=== PATIENT | male | born 1955 | race African-American/Black ===

== ENCOUNTER 2017-09-28 10:10 | Emergency (ER) | payer BC, MEDICARE, OTHER ==
[~2017-09-28] VITALS: Ht 170.2 cm; Wt 70.8 kg
[~2017-09-28 10:10] MED LIST: AURALGAN OTIC1 DROP RIGHT EAR; AZITHROMYCIN250 MG ORAL; BENADRYL50 MG ORAL; BIAXIN500 M1 PO; CEPHALEXIN500 MG ORAL; CIALIS5 MG PO; FLONASE1 SPRAYS NASAL; GENVOYA TABLET1 EACH PO; NORCO 5-325 TA1 EAC1 ORAL; PREDNISONE50 MG ORAL; RANITIDINE HCL150 MG ORAL; SERTRALINE HCL50 MG ORAL; TORADOL30 MG IM; ZYRTEC-D TABLE1 EACH ORAL
[2017-09-28] MEDS ORDERED: EPIPEN 2-P0.3 MG/0.3 IM (10:26)
[2017-09-28] MEDS ORDERED: BENADRYL25 MG ORAL (10:26)
[2017-09-28] MEDS ORDERED: PREDNISONE20 MG ORAL (10:26)
--- NOTE | 2017-09-28 10:41 | Emergency Room Report ---
History of Present Illness General Chief Complaint: Allergic Reaction Source: Patient Present Illness HPI Patient is a 62-year-old male who presented after increased generalized rash. Patient had onset of symptoms for the past few hours. He denied any difficulty breathing. Dizzy or lightheaded. Patient stated that he had been having increased itching to the area. He denies any medications or recent illness Allergies: Coded Allergies: NO KNOWN ALLERGIES (Unverified Allergy, Unknown, 10/08/15) Patient History Past Medical History: see triage record Reviewed Nursing Documentation: PMH: Agreed, PSxH: Agreed Nursing Documentation-PMH Past Medical History: No History, Except For Review of Systems All Other Systems: negative except mentioned in HPI Physical Exam Vital Signs Date Time Temp Pulse Resp B/P (MAP) Pulse Ox O2 Delivery O2 Flow Rate FiO2 09/28/17 10:14 97.9 80 16 114/66 99 Room Air Sp02 EP Interpretation: reviewed, normal General Appearance: normal inspection, well appearing, no apparent distress, alert, GCS 15, non-toxic Head: atraumatic ENT: normal ENT inspection, hearing grossly normal, normal voice Neck: normal inspection, full range of motion, supple, no bony tend Respiratory: normal inspection, lungs clear, normal breath sounds, no respiratory distress, no retraction, no wheezing Cardiovascular #1: regular rate, rhythm, no edema Gastrointestinal: normal inspection, normal bowel sounds, non tender, soft, no guarding, no hernia Genitourinary: no CVA tenderness Musculoskeletal: normal inspection, back normal, normal range of motion Neurologic: normal inspection, alert, responsive, speech normal Psychiatric: normal inspection, judgement/insight normal, mood/affect normal Skin: other - urticaria rash, generalized Medical Decision Making Diagnostic Impression: Primary Impression: Allergic reaction ER Course Patient presented for skin rash. Differential diagnosis included was not limited to Solares-Hipolito syndrome, urticaria, erythema multiforme, contact dermatitis. The patient was given Benadryl and steroids with improvement to Patient's benign exam and does not appear to require any further imaging or laboratory testing at this time. The patient is advised to follow up with primary care doctor in 1-2 days. Patient is advised to return if any worsening condition or if any changes in status that are concerning. Last Vital Signs Date Time Temp Pulse Resp B/P (MAP) Pulse Ox O2 Delivery O2 Flow Rate FiO2 09/28/17 10:14 97.9 80 16 114/66 99 Room Air Status: improved Disposition: HOME, SELF-CARE Condition: Stable Scripts Epinephrine (Epipen 2-Luis) 0.3 Mg/0.3 Ml Auto.injct 0.3 MG IM NEEDED for severe allergic reaction, #1 EA Prov: Sunil Atwood 09/28/17 Prednisone* (PREDNISONE*) 20 Mg Tablet 40 MG ORAL DAILY, #10 TAB Prov: Sunil Atwood 09/28/17 Diphenhydramine Hcl* (BENADRYL*) 25 Mg Capsule 25 MG ORAL Q6H Y for Itching, #30 CAP Prov: Sunil Atwood 09/28/17 Patient Instructions: Allergies Sunil Atwood Sep 28, 2017 10:41
[2017-09-28 11:04] VITALS: BP 124/75
== END 2017-09-28 11:05 | disposition home or self-care (01) ==
LOC: EMR 10:46
DX: T78.40XA Allergy, unspecified, initial encounter (principal); X58.XXXA Exposure to other specified factors, initial encounter; R21 Rash and other nonspecific skin eruption
CPT/HCPCS: 99284

== ENCOUNTER 2019-01-03 03:50 | Emergency (ER) | payer MEDICARE ==
[~2019-01-03] VITALS: Ht 170.2 cm; Wt 71.7 kg
[~2019-01-03 03:50] MED LIST changes: +BENADRYL25 MG ORAL; +DICYCLOMINE HCL10 MG PO; +EPIPEN 2-P0.3 MG/0.3 IM; +PREDNISONE20 MG ORAL; +PRILOSEC OTC20 MG ORAL; +ZOFRAN4 MG ORAL
[2019-01-03 04:21] VITALS: BP 149/90
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
[2019-01-03] MEDS ORDERED: Azithromycin 250mg tab ORAL ONE (04:45)
[2019-01-03] MEDS ORDERED: Ketorolac 30mg Inj IV ONE (04:45)
[2019-01-03] MEDS ORDERED: Isovue-300 100ml vial INJ PRN (04:45)
[2019-01-03] MEDS ORDERED: cefTRIAXone 1 GM in NS 55 ML IVPB ONE (04:45)
[2019-01-03 04:55] LABS: BASOPHILS % (AUTO) 1.9 % (0.0-2.0); EOSINOPHILS % (AUTO) 2.5 % (0.0-3.0); HEMATOCRIT 32.4 % (42.0-52.0); HEMOGLOBIN 10.9 G/DL (14.2-18.0); LYMPHOCYTES % (AUTO) 29.7 % (20.0-45.0); MEAN CORPUSCULAR VOLUME 97 FL (80-99); MONOCYTES % (AUTO) 11.1 % (1.0-10.0); NEUTROPHILS % (AUTO) 54.8 % (45.0-75.0); PLATELET COUNT 128 K/UL (150-450); RED BLOOD COUNT 3.35 M/UL (4.70-6.10); RED CELL DISTRIBUTION WIDTH 12.2 % (11.6-14.8); WHITE BLOOD COUNT 8.1 K/UL (4.8-10.8)
[2019-01-03 05:16] LABS: ALANINE AMINOTRANSFERASE 31 U/L (12-78); ALKALINE PHOSPHATASE 75 U/L (46-116); ANION GAP 7 mmol/L (5-15); ASPARTATE AMINO TRANSFERASE 22 U/L (15-37); BILIRUBIN,TOTAL 0.3 MG/DL (0.2-1.0); CARBON DIOXIDE 26 MMOL/L (21-32); CHLORIDE 103 MMOL/L (98-107); CREATINE KINASE 198 U/L (26-308); POTASSIUM 4.3 MMOL/L (3.5-5.1); SODIUM 136 MMOL/L (136-145)
[2019-01-03 05:26] LABS: ALBUMIN 3.5 G/DL (3.4-5.0); BLOOD UREA NITROGEN 12 mg/dL (7-18); CREATININE 0.9 MG/DL (0.55-1.30)
[2019-01-03 05:28] LABS: CALCIUM 9.1 MG/DL (8.5-10.1)
--- NOTE | 2019-01-03 05:57 | Diagnostic Imaging Report ---
EXAM: XR Chest, 1 View CLINICAL HISTORY: PAIN TECHNIQUE: Frontal view of the chest. COMPARISON: No relevant prior studies available. FINDINGS: Lungs: Low lung volumes accentuate pulmonary lung markings. Mild right basilar atelectasis. Mild streaky density in the left lung base. Pleural space: Unremarkable. No pneumothorax. Heart: Unremarkable. No cardiomegaly. Mediastinum: Unremarkable. Bones/joints: Unremarkable. Vasculature: Slight unfolding of the thoracic aorta. Upper abdomen: Mild elevation of the right hemidiaphragm. Surgical clips in the right upper quadrant. IMPRESSION: Low lung volumes. Mild bibasilar atelectasis suspected. Elevation of the right hemidiaphragm
[2019-01-03 06:03] LABS: APPEARANCE,URINE CLEAR; BILIRUBIN, URINE NEGATIVE (NEGATIVE); COLOR,URINE PALE YELLOW; GLUCOSE, URINE (UA) NEGATIVE (NEGATIVE); KETONES,URINE NEGATIVE (NEGATIVE); LEUKOCYTE ESTERASE ,URINE 1+ (NEGATIVE); NITRITE,URINE NEGATIVE (NEGATIVE); PH,URINE 5 (4.5-8.0); PROTEIN,URINE 2+ (NEGATIVE); UROBILINOGEN,URINE NORMAL MG/DL (0.0-1.0)
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
[2019-01-03] MEDS ORDERED: Azithromycin 600mg Tab ONE (06:10)
[2019-01-03 06:30] VITALS: BP 124/86
--- NOTE | 2019-01-03 07:19 | NUR ---
ER Nurse Note: Pt came back from CT; awaiting results. Pt a&ox4, VSS, no signs of distress. All orders completed per ERMD orders. Report given to ANTHONY Case for continuity of care.
--- NOTE | 2019-01-03 07:19 | NUR ---
ED Nurse Note: Report received from RN, patient is in bed resting comfortably with his eyes open. V/S stable with no s/s of acute distress noted. Pt awaiting CT results.
[2019-01-03] MEDS ORDERED: ROBAXIN500 MG PO (07:24)
[2019-01-03] MEDS ORDERED: IBUPROFEN600 MG ORAL (07:24)
--- NOTE | 2019-01-03 07:40 | Diagnostic Imaging Report ---
EXAM: CT Neck With Intravenous Contrast CLINICAL HISTORY: PAIN TECHNIQUE: Axial computed tomography images of the neck with intravenous contrast. CTDI is 19.5 mGy and DLP is 628 mGy-cm. One or more of the following dose reduction techniques were used: automated exposure control, adjustment of the mA and/or kV according to patient size, use of iterative reconstruction technique. Coronal and sagittal reformatted images were created and reviewed. COMPARISON: CXR 01/03/19. FINDINGS: Oropharynx: Mild mucosal thickening which may reflect a degree of pharyngitis. No significant tonsillar enlargement. No peritonsillar abscess. Hypopharynx: Unremarkable. Larynx: Unremarkable. Normal epiglottis. Trachea: Unremarkable. Retropharyngeal space: Unremarkable. Submandibular/parotid glands: Unremarkable. Glands are normal in size. Thyroid: Unremarkable. No enlarged or calcified nodules. Bones/joints: Cervical spondylosis with disc osteophytes complexes from C3-C7 with varying degrees of central and neural foraminal stenosis. No acute fracture. Soft tissues: Unremarkable. Vasculature: No acute findings. Lymph nodes: Submental lymph nodes measuring up to 14.8 mm. Nonspecific. Lung apices: Right lower lobe cluster of nodules measuring up to 4.9- mm. Few lung blebs seen within the visualized lung apices. IMPRESSION: 1. Mild mucosal thickening of the oropharynx which may reflect a degree of pharyngitis 2 Cervical spondylosis with disc osteophytes complexes from C3-C7 with varying degrees of central and neural foraminal stenosis. 3. Right lower lobe cluster of nodules measuring up to 4.9-mm. For low- risk patients, no follow-up is necessary. For high-risk patients (smoking history or other known risk factors) an optional chest CT at 12 months could be performed.
[2019-01-03 08:21] VITALS: BP 124/81
--- NOTE | 2019-01-03 08:22 | NUR ---
ED Nurse Note Pt seen, treated, medically cleared for discharge for ERMD. Discharge instructions and prescriptions given with repeat verbalization by pt. Instructed pt to follow up with primary care physican within one week. Pt a&ox4, VSS, no signs of distress, denies pain. ID band removed; IV removed, site clean and bandaged. All belongings taken wtih pt, ambulated with steady gait via own transportation.
== END 2019-01-03 08:22 | disposition home or self-care (01) ==
LOC: EMR 04:16
DX: M54.2 Cervicalgia (principal); M47.812 Spondylosis without myelopathy or radiculopathy, cervical region; R82.998 Other abnormal findings in urine
CPT/HCPCS: 36415; 70491; 71045; 72126; 80053; 81003; 82550; 84484; 85025; 86140; 87491; 87590; 93005; 96361; 96365; 96375; 99284; J0696; J1885; Q9967

== ENCOUNTER 2019-08-30 19:57 | Inpatient (IN) | payer MEDICARE ==
[~2019-08-30] VITALS: Ht 170.2 cm; Wt 66.7 kg
[~2019-08-30 19:57] MED LIST changes: +IBUPROFEN600 MG ORAL; +ROBAXIN500 MG PO
--- NOTE | 2019-08-30 20:14 | NUR ---
ED Nurse Note: Patient ursed in corrid[place]. Complaining of headaxche and back ache since 6am this morning.
[2019-08-30] MEDS ORDERED: Ketorolac 30mg Inj IV ONE (21:15)
[2019-08-30 21:33] LABS: APPEARANCE,URINE CLEAR; BILIRUBIN, URINE NEGATIVE (NEGATIVE); COLOR,URINE PALE YELLOW; GLUCOSE, URINE (UA) NEGATIVE (NEGATIVE); KETONES,URINE NEGATIVE (NEGATIVE); LEUKOCYTE ESTERASE ,URINE NEGATIVE (NEGATIVE); NITRITE,URINE NEGATIVE (NEGATIVE); PH,URINE 8 (4.5-8.0); PROTEIN,URINE 1+ (NEGATIVE); UROBILINOGEN,URINE NORMAL MG/DL (0.0-1.0)
[2019-08-30 22:03] LABS: HEMATOCRIT 33.3 % (42.0-52.0); HEMOGLOBIN 10.9 G/DL (14.2-18.0); MEAN CORPUSCULAR VOLUME 94 FL (80-99); PLATELET COUNT 479 K/UL (150-450); RED BLOOD COUNT 3.54 M/UL (4.70-6.10); RED CELL DISTRIBUTION WIDTH 13.2 % (11.6-14.8); WHITE BLOOD COUNT 20.4 K/UL (4.8-10.8)
[2019-08-30 22:08] LABS: ANION GAP 5 mmol/L (5-15); BLOOD UREA NITROGEN 8 mg/dL (7-18); CALCIUM 9.2 MG/DL (8.5-10.1); CARBON DIOXIDE 30 MMOL/L (21-32); CHLORIDE 100 MMOL/L (98-107); POTASSIUM 3.8 MMOL/L (3.5-5.1); SODIUM 135 MMOL/L (136-145)
[2019-08-30 22:13] LABS: ALANINE AMINOTRANSFERASE 22 U/L (12-78); ALBUMIN 2.8 G/DL (3.4-5.0); ALBUMIN/GLOBULIN RATIO 0.4 (1.0-2.7); ALKALINE PHOSPHATASE 93 U/L (46-116); ASPARTATE AMINO TRANSFERASE 18 U/L (15-37); BILIRUBIN,TOTAL 0.3 MG/DL (0.2-1.0); CREATINE KINASE 44 U/L (26-308)
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
[2019-08-30] MEDS ORDERED: oxyCODONE HCL/Acetaminophen 5/325mg ORAL ONE (23:45)
--- NOTE | 2019-08-30 23:52 | NUR ---
Face sheet, dictation and clinicals faxed to [phone] and [phone] as requested with authorization # [id number]
[2019-08-31] VITALS: BP 118/72
--- NOTE | 2019-08-31 00:30 | NUR ---
ED Nurse Note: Patient transferred to [facility] [address] bed 2 report given to charge nurse pre transfer.
--- NOTE | 2019-08-31 00:35 | NUR ---
NURSE NOTES: Pt received to the floor, alert and oriented X 4, able to make needs known, call light within reach,VS 99.7, 84HR 132/75, 95% with pain level of 6/10, will contact MD for orders and to verify if pt will be observation. Addendum: 08/31/19 at 0458 by BRAN GAVIRIA RN NURSE NOTES: Pt belongings list completed and signed pt the pt, he refused to put his money in the safe. Pt also with 2 tabs of [place] in his wallet. Medication was taken from pt and will be given to the pharmacy.
[2019-08-31] MEDS ORDERED: HYDROcodone/Acetamin 5/325 tab ORAL PRN (01:15)
[2019-08-31] MEDS: HYDROcodone/Acetamin 10/325 tab ORAL PRN ×3 (01:41→18:15)
[2019-08-31 04:00] VITALS: BP 116/58
--- NOTE | 2019-08-31 07:23 | NUR ---
HAND-OFF: Report given to ANTHONY Finley.
[2019-08-31 07:44] LABS: HEMATOCRIT 27.8 % (42.0-52.0); HEMOGLOBIN 9.3 G/DL (14.2-18.0); MEAN CORPUSCULAR VOLUME 94 FL (80-99); PLATELET COUNT 433 K/UL (150-450); RED BLOOD COUNT 2.95 M/UL (4.70-6.10); RED CELL DISTRIBUTION WIDTH 14.5 % (11.6-14.8)
[2019-08-31 08:00] VITALS: BP 114/57
--- NOTE | 2019-08-31 08:09 | NUR ---
pt resting in bed. complained of back pain, medicated per order. tolerating diet well. no N/V . call light within reach. fall precaution maintained. will continue to monitor. Addendum: 08/31/19 at 1452 by Malia Glaser RN pt family will bring [employer] med from home tomorrow.
[2019-08-31 08:41] LABS: ALANINE AMINOTRANSFERASE 15 U/L (12-78); ALBUMIN 2.4 G/DL (3.4-5.0); ALBUMIN/GLOBULIN RATIO 0.4 (1.0-2.7); ALKALINE PHOSPHATASE 83 U/L (46-116); ANION GAP 6 mmol/L (5-15); ASPARTATE AMINO TRANSFERASE 14 U/L (15-37); BILIRUBIN,TOTAL 0.3 MG/DL (0.2-1.0); BLOOD UREA NITROGEN 7 mg/dL (7-18); CALCIUM 8.8 MG/DL (8.5-10.1); CARBON DIOXIDE 25 MMOL/L (21-32); CHLORIDE 103 MMOL/L (98-107); CREATININE 0.9 MG/DL (0.55-1.30); POTASSIUM 3.9 MMOL/L (3.5-5.1); SODIUM 134 MMOL/L (136-145)
[2019-08-31] MEDS: Docusate 100mg cap ORAL SCH ×2 (08:45→18:16)
[2019-08-31] MEDS: Heparin 5000 units/ml inj SUBQ SCH ×2 (08:46→20:33)
[2019-08-31 12:00] VITALS: BP 120/65
[2019-08-31] MEDS ORDERED: oxyCODONE HCL/Acetaminophen 5/325mg ORAL PRN (13:00)
[2019-08-31] MEDS ORDERED: Ketorolac 30mg Inj IV SCH ×2 (13:00→17:00)
[2019-08-31] MEDS ORDERED: Gadavist 7.5mMol/7.5ml vial IV PRN ×2 (14:15)
--- NOTE | 2019-08-31 14:30 | Infectious Diseases Prog Note ---
Assessment/Plan Assessment/Plan Full consult to follow: A) 1) V[place]LEG[place], fever, ? 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 spinal 2) leukocytosis, ? sepsis 3) hiv hx P) 1) MRI, LP 2) cultures, serology, f/u labs 3) antibiotics as indicated 4) thank you Subjective Allergies: Coded Allergies: NO KNOWN ALLERGIES (Unverified Allergy, Unknown, 10/08/15) Objective Vital Signs Last 24 Hour Vital Signs Date Time Temp Pulse Resp B/P (MAP) Pulse Ox O2 Delivery O2 Flow Rate FiO2 08/31/19 12:00 97.7 120/65 (83) 08/31/19 09:00 Room Air 08/31/19 08:21 99.1 08/31/19 08:00 99.1 87 20 114/57 (76) 97 08/31/19 04:00 97.0 90 20 116/58 (77) 95 08/31/19 01:02 Room Air 08/31/19 00:30 98.7 82 16 118/72 98 Room Air 08/31/19 00:00 98.7 82 16 118/72 98 Room Air 08/30/19 20:20 82 16 Room Air 08/30/19 20:01 98.2 76 16 110/68 (82) 98 Room Air Height (Feet): 5 Height (Inches): 7.00 Weight (Pounds): 147 Laboratory Tests Test 08/30/19 20:20 08/30/19 21:23 08/30/19 22:25 08/31/19 05:30 Urine Color Pale yellow Urine Appearance Clear Urine pH 8 (4.5-8.0) Urine Specific [place] 1.015 (1.005-1.035) Urine Protein 1+ (NEGATIVE) H Urine Glucose (UA) Negative (NEGATIVE) Urine Ketones Negative (NEGATIVE) Urine Blood 1+ (NEGATIVE) H Urine Nitrite Negative (NEGATIVE) Urine Bilirubin Negative (NEGATIVE) Urine Urobilinogen Normal MG/DL (0.0-1.0) Urine Leukocyte Esterase Negative (NEGATIVE) Urine RBC 2-4 /HPF (0 - 0) H Urine WBC 0 /HPF (0 - 0) Urine Squamous Epithelial Cells Occasional /LPF Urine Bacteria Occasional /HPF (NONE) White Blood Count 20.4 K/UL (4.8-10.8) H Pending Red Blood Count 3.54 M/UL (4.70-6.10) L 2.95 M/UL (4.70-6.10) L Hemoglobin 10.9 G/DL (14.2-18.0) L 9.3 G/DL (14.2-18.0) L Hematocrit 33.3 % (42.0-52.0) L 27.8 % (42.0-52.0) L Mean Corpuscular Volume 94 FL (80-99) 94 FL (80-99) Mean Corpuscular Hemoglobin 30.9 PG (27.0-31.0) 31.7 PG (27.0-31.0) H Mean Corpuscular Hemoglobin Concent 32.8 G/DL (32.0-36.0) 33.6 G/DL (32.0-36.0) Red Cell Distribution Width 13.2 % (11.6-14.8) 14.5 % (11.6-14.8) Platelet Count 479 K/UL (150-450) H 433 K/UL (150-450) Mean Platelet Volume 5.5 FL (6.5-10.1) L 4.6 FL (6.5-10.1) L Neutrophils (%) (Auto) % (45.0-75.0) % (45.0-75.0) Lymphocytes (%) (Auto) % (20.0-45.0) % (20.0-45.0) Monocytes (%) (Auto) % (1.0-10.0) % (1.0-10.0) Eosinophils (%) (Auto) % (0.0-3.0) % (0.0-3.0) Basophils (%) (Auto) % (0.0-2.0) % (0.0-2.0) Differential Total Cells Counted 100 100 Neutrophils % (Manual) 69 % (45-75) 70 % (45-75) Lymphocytes % (Manual) 17 % (20-45) L 13 % (20-45) L Monocytes % (Manual) 13 % (1-10) H 15 % (1-10) H Eosinophils % (Manual) 0 % (0-3) 2 % (0-3) Basophils % (Manual) 1 % (0-2) 0 % (0-2) Band Neutrophils 0 % (0-8) 0 % (0-8) Platelet Estimate Increased H Adequate Platelet Morphology Normal Normal Stomatocytes 2+ Sodium Level 135 MMOL/L (136-145) L 134 MMOL/L (136-145) L Potassium Level 3.8 MMOL/L (3.5-5.1) 3.9 MMOL/L (3.5-5.1) Chloride Level 100 MMOL/L (98-107) 103 MMOL/L (98-107) Carbon Dioxide Level 30 MMOL/L (21-32) 25 MMOL/L (21-32) Anion Gap 5 mmol/L (5-15) 6 mmol/L (5-15) Blood Urea Nitrogen 8 mg/dL (7-18) 7 mg/dL (7-18) Creatinine 1.0 MG/DL (0.55-1.30) 0.9 MG/DL (0.55-1.30) Estimat Glomerular Filtration Rate > 60 mL/min (>60) > 60 mL/min (>60) Glucose Level 105 MG/DL (74-106) 152 MG/DL (74-106) H Calcium Level 9.2 MG/DL (8.5-10.1) 8.8 MG/DL (8.5-10.1) Total Bilirubin 0.3 MG/DL (0.2-1.0) 0.3 MG/DL (0.2-1.0) Aspartate Amino Transf (AST/SGOT) 18 U/L (15-37) 14 U/L (15-37) L Alanine Aminotransferase (ALT/SGPT) 22 U/L (12-78) 15 U/L (12-78) Alkaline Phosphatase 93 U/L (46-116) 83 U/L (46-116) Total Creatine Kinase 44 U/L (26-308) Total Protein 10.2 G/DL (6.4-8.2) H 8.9 G/DL (6.4-8.2) H Albumin 2.8 G/DL (3.4-5.0) L 2.4 G/DL (3.4-5.0) L Globulin 7.4 g/dL 6.5 g/dL Albumin/Globulin Ratio 0.4 (1.0-2.7) L 0.4 (1.0-2.7) L Lipase 56 U/L (73-393) L Lactic Acid Level 1.70 mmol/L (0.4-2.0) Lymphocytes Pending Percent CD3 Cells Pending Absolute CD3 Count Pending Percent CD4 Cells Pending Absolute CD4 Count Pending T-Lymphocyte CD4/CD8 Ratio Pending Percent CD8 Cells Pending Absolute CD8 Count Pending HIV-1 RNA (PCR) log10 Value Pending HIV-1 RNA Ultraquantitative (PCR) Pending Current Medications Medications (Trade) Dose Ordered Sig/Jamil Route PRN Reason Start Time Stop Time Status Last Admin Dose Admin Acetaminophen (Tylenol) 650 mg Q4H PRN ORAL Mild Pain/Temp > 100.5 08/31/19 01:15 09/30/19 01:14 Acetaminophen/ Hydrocodone Bitart ([place] 10/325) 1 tab Q4H PRN ORAL Severe Pain (Pain Scale 7-10) 08/31/19 01:15 09/07/19 01:14 08/31/19 07:51 Acetaminophen/ Hydrocodone Bitart ([place] 5/325) 1 tab Q4H PRN ORAL Moderate Pain (Pain Scale 4-6) 08/31/19 01:15 09/07/19 01:14 Docusate Sodium (Colace) 100 mg TWICE A DAY ORAL 08/31/19 09:00 09/30/19 08:59 08/31/19 08:45 Gadobutrol (Gadavist) 7.5 mmol NOW PRN IV Radiology Procedure 08/31/19 14:15 09/04/19 14:13 Gadobutrol (Gadavist) 7.5 mmol NOW PRN IV Radiology Procedure 08/31/19 14:15 09/04/19 14:13 Heparin Sodium (Porcine) (Heparin 5000 units/ml) 5,000 units EVERY 12 HOURS SUBQ 08/31/19 09:00 09/30/19 08:59 Non-Formulary Medication (Non-Formulary Med) 1 ea DAILY ORAL 08/31/19 09:00 09/30/19 08:59 UNV Ondansetron HCl (Zofran) 4 mg Q6H PRN IVP Nausea & Vomiting 08/31/19 01:15 09/30/19 01:14 08/31/19 10:58 Oxycodone/ Acetaminophen (Percocet 10/325) 1 tab Q6H PRN ORAL moderate to severe pain 08/31/19 13:00 09/07/19 12:59 Oxycodone/ Acetaminophen (Percocet 5-325) 1 tab Q6H PRN ORAL mild pain 08/31/19 13:00 09/07/19 12:59 Sodium Chloride 1,000 ml @ 100 mls/hr Q10H IV 08/31/19 13:00 09/30/19 12:59 Sourav Nelson MD Aug 31, 2019 14:30
--- NOTE | 2019-08-31 14:32 | Diagnostic Imaging Report ---
Indication: Cough Technique: One view of the chest Comparison: 01/03/2019 Findings: Again demonstrated is elevation of the right hemidiaphragm. The lungs and pleural spaces are clear. Surgical clips are seen in the right upper quadrant. The heart size is normal Impression: No acute process
--- NOTE | 2019-08-31 15:28 | NUR ---
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 PER RENAY PT IS CAPITATED TO [facility]. RENAY HE WILL CONSULT WITH HIS FLATBED OWNER OPERATOR FOR POSSIBLE TRANSFER INTO NETWORK. WILL CONTINUE TO FOLLOW UP ON TRANSFER STATUS.
--- NOTE | 2019-08-31 15:39 | NUR ---
Received call from Roney , (Radiology ), pts spinal tap will be done tomorrow due to schedule.
--- NOTE | 2019-08-31 16:06 | NUR ---
CASE MANAGEMENT: REVIEW 64 YR OLD MALE FROM HOME PMH: HIV CC: GENERAL COMPLAINT SI: LEUKOCYTOSIS; FEVER 98.3 76 16 110/68 98% RA WBC 20.4; NA+135; RBC 3.54; H/H 10.9/33.3; PLT 479 IS: IVF NS BOLUS IV TORADOL X1 PERCOCET PO X1 CXR : 4E MED/SURG DCP: RETURN HOME PLAN: MRI SPINE 2D ECHO CASE MANAGEMENT: REVIEW 08/31/19 SI: LEUKOCYTOSIS 99.1 87 20 114/57 97% RA WBC 20.0; RBC 2.95; H/H 9.3/27.8; BG 152 NA+ 134 IS: IVF NS @100ML/HR PERCOCET PO Q6/PRN HEPARIN SQ Q12HR : 4E MED/SURG DCP: RETURN HOME PLAN: MRI TODAY BL CX ABX
[2019-08-31 16:30] VITALS: BP 103/52
--- NOTE | 2019-08-31 16:32 | NUR ---
pt UNABLE TO CONTINUE EXAM. ALL NON CONTRAST PHASES COMPLETE. WILL COMPLETE EXAM FIRST THING TOMORROW AM WITH CONTRAST PHASES. RN NOTIFIED/ RADIOLOGIST (DR Mahan) NOTIFIED WELL ORDERING MD (DR. BRADLEY) NOTIFIED EXAM WILL BE COMPLETE TOMORROW WHEN pt IS READY. @ 1630 HRS - CS
[2019-08-31 17:54] LABS: INR 1.1 (0.9-1.1)
--- NOTE | 2019-08-31 19:25 | History and Physical ---
History of Present Illness General Date patient seen: Aug 31, 2019 Reason for Hospitalization: General Complaint Present Illness HPI This is a 40 year old male with a PMHx of HIV on HAART (Genvoya), h/o lumbar spinal fusion, monoclonal gammopathy presenting with generalized weakness, subjective fevers, weight loss, painful cervical lymphadenopathy, and acute on chronic low back pain x 3 weeks. 3 weeks ago the patient developed hives and was tresated with a short course of benadryl and prednisone and resolved. He denies any recent travel, drug use, sick contacts, TB exposure, exposure to any animals or pets. he denies any nausea, vomiting, diarrhea, numbness tingling, focal weakness. He endorses a 7lb weight loss during this time period due to decreased PO intake. He is monogamous with his partner but one month ago had unprotected oral intercourse with another man. ER course: Afebrile, normotensive, nontachycardic. WBC 20K, Hgb 9.5, CMP remarkable for Total protein 10.2 and albumin 2.8. UA and CXR negative. Social history Tobacco: none EtoH: none Drug: Tried meth 2 months ago Surgical history Spinal fusion Family history Father- colon cancer at age 73 Mother: HTN Allergies: Coded Allergies: NO KNOWN ALLERGIES (Unverified Allergy, Unknown, 10/08/15) Medication History Scheduled Elviteg/Mindy/Emtric/Tenofo Ala (Genvoya Tablet), 1 EACH PO DAILY, (Reported) Scheduled PRN Hydrocodone Bit/Acetaminophen 5-325* ([place] 5-325 Tablet*), 1 TAB ORAL Q4H PRN for For Pain, (Reported) Discontinued Medications Cephalexin* (Keflex*), 500 MG ORAL EVERY 12 HOURS Discontinued Reason: Pt stopped taking med Cetirizine Hcl/Pseudoephedrine (Zyrtec-D Tablet), 1 EACH ORAL DAILY Discontinued Reason: Pt stopped taking med Clarithromycin (Biaxin), 500 MG PO BID Discontinued Reason: Pt stopped taking med Dicyclomine Hcl* (Dicyclomine Hcl*), 10 MG PO QID Discontinued Reason: Pt stopped taking med Diphenhydramine Hcl* (Benadryl*), 25 MG ORAL Q6H PRN for Itching Discontinued Reason: Pt stopped taking med Epinephrine (Epipen 2-Luis), 0.3 MG IM NEEDED Discontinued Reason: Pt stopped taking med Fluticasone Propionate (Fluticasone Propionate), 1 SPRAY NASAL DAILY, (Reported) Discontinued Reason: Pt stopped taking med Ibuprofen* (Motrin*), 600 MG ORAL Q6H PRN for For Pain Discontinued Reason: Pt stopped taking med Ketorolac Tromethamine (Ketorolac Tromethamine), 0 IM BID, (Reported) Discontinued Reason: Pt stopped taking med Methocarbamol* (Robaxin*), 500 MG PO TID PRN for muscle pain Discontinued Reason: Pt stopped taking med Omeprazole Magnesium (Prilosec Otc), 20 MG ORAL DAILY Discontinued Reason: Pt stopped taking med Ondansetron (Zofran), 4 MG ORAL Q6H PRN for Nausea & Vomiting Discontinued Reason: Pt stopped taking med Prednisone* (Prednisone*), 40 MG ORAL DAILY Discontinued Reason: Pt stopped taking med Sertraline Hcl* (Zoloft*), 50 MG ORAL DAILY, (Reported) Discontinued Reason: Pt stopped taking med Tadalafil (Cialis), 5 MG PO DAILY, (Reported) Discontinued Reason: Pt stopped taking med Patient History Healthcare decision maker Resuscitation status Full Code Advanced Directive on File Review of Systems Constitutional: Reports: chills, malaise, weakness; Denies: see HPI, sweats, fever, other Eye: Denies: see HPI, eye pain, blurred vision, tearing, double vision, nose pain, nose congestion, acuity changes, discharge, other ENT: Denies: see HPI, ear pain, ear discharge, nose pain, nose congestion, throat pain, throat swelling, mouth pain, hearing loss, nasal discharge, other Respiratory: Denies: see HPI, cough, orthopnea, shortness of breath, stridor, wheezing, EDGE, sputum, other Cardiovascular: Denies: see HPI, chest pain, edema, palpitations, syncope, PND , other Gastrointestinal: Denies: see HPI, abdominal pain, constipation, diarrhea, nausea, vomiting, melena, hematemesis, other Genitourinary: Denies: see HPI, discharge, dysuria, frequency, hematuria, pain , retention, incontinence, urgency, vag bleed/dc, other Musculoskeletal: Reports: joint pain, muscle pain, muscle stiffness; Denies: see HPI, back pain, gout, joint swelling, other Skin: Denies: see HPI, rash, change in color, change in hair/nails, dryness, lesions, other Psychiatric: Denies: see HPI, prior hx, anxiety, depressed feelings, emotional problems, SI, HI, hallucinations, other Neurological: Denies: see HPI, headache, numbness, paresthesia, seizure, tingling, tremors, focal weakness, syncope, dizziness, other Endocrine: Denies: see HPI, excessive sweating, flushing, intolerance to temperature, increased thirst, increased urine, unexplained weight loss, other Hematologic/Lymphatic: Denies: see HPI, anemia, blood clots, easy bleeding, easy bruising, swollen glands, diathesis, other Physical Exam General Appearance: WD/WN, no apparent distress, alert, lethargic HEENT: normocephalic, atraumatic, no JVD, other - enlarged cervical lymph nodes Neck: non-tender, normal alignment, other - stiff neck Respiratory/Chest: chest wall non-tender, lungs clear, normal breath sounds, no respiratory distress Cardiovascular/Chest: normal peripheral pulses, normal rate, regular rhythm, no JVD Abdomen: normal bowel sounds, non tender, soft, no organomegaly, no mass Extremities: normal range of motion, non-tender, no calf tenderness, normal capillary refill, non-pitting Skin Exam: normal pigmentation, warm/dry 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 grossly normal, no motor/sensory deficits, abnormal gait , alert, oriented x 3, responsive Last 24 Hour Vital Signs Date Time Temp Pulse Resp B/P (MAP) Pulse Ox O2 Delivery O2 Flow Rate FiO2 08/31/19 18:45 98.8 08/31/19 16:30 98.8 103/52 (69) 08/31/19 13:59 97.7 08/31/19 13:59 97.7 08/31/19 12:00 97.7 120/65 (83) 08/31/19 09:00 Room Air 08/31/19 08:00 99.1 87 20 114/57 (76) 97 08/31/19 04:00 97.0 90 20 116/58 (77) 95 08/31/19 01:02 Room Air 08/31/19 00:30 98.7 82 16 118/72 98 Room Air 08/31/19 00:00 98.7 82 16 118/72 98 Room Air 08/30/19 20:20 82 16 Room Air 08/30/19 20:01 98.2 76 16 110/68 (82) 98 Room Air Intake and Output 08/30/19 08/31/19 19:00 07:00 Intake Total 1520 ml Balance 1520 ml Intake Oral 520 ml IV Total 1000 ml Laboratory Tests Test 08/30/19 20:20 08/30/19 21:23 08/30/19 22:25 08/31/19 05:30 Urine Color Pale yellow Urine Appearance Clear Urine pH 8 (4.5-8.0) Urine Specific [place] 1.015 (1.005-1.035) Urine Protein 1+ (NEGATIVE) H Urine Glucose (UA) Negative (NEGATIVE) Urine Ketones Negative (NEGATIVE) Urine Blood 1+ (NEGATIVE) H Urine Nitrite Negative (NEGATIVE) Urine Bilirubin Negative (NEGATIVE) Urine Urobilinogen Normal MG/DL (0.0-1.0) Urine Leukocyte Esterase Negative (NEGATIVE) Urine RBC 2-4 /HPF (0 - 0) H Urine WBC 0 /HPF (0 - 0) Urine Squamous Epithelial Cells Occasional /LPF Urine Bacteria Occasional /HPF (NONE) White Blood Count 20.4 K/UL (4.8-10.8) H Pending Red Blood Count 3.54 M/UL (4.70-6.10) L 2.95 M/UL (4.70-6.10) L Hemoglobin 10.9 G/DL (14.2-18.0) L 9.3 G/DL (14.2-18.0) L Hematocrit 33.3 % (42.0-52.0) L 27.8 % (42.0-52.0) L Mean Corpuscular Volume 94 FL (80-99) 94 FL (80-99) Mean Corpuscular Hemoglobin 30.9 PG (27.0-31.0) 31.7 PG (27.0-31.0) H Mean Corpuscular Hemoglobin Concent 32.8 G/DL (32.0-36.0) 33.6 G/DL (32.0-36.0) Red Cell Distribution Width 13.2 % (11.6-14.8) 14.5 % (11.6-14.8) Platelet Count 479 K/UL (150-450) H 433 K/UL (150-450) Mean Platelet Volume 5.5 FL (6.5-10.1) L 4.6 FL (6.5-10.1) L Neutrophils (%) (Auto) % (45.0-75.0) % (45.0-75.0) Lymphocytes (%) (Auto) % (20.0-45.0) % (20.0-45.0) Monocytes (%) (Auto) % (1.0-10.0) % (1.0-10.0) Eosinophils (%) (Auto) % (0.0-3.0) % (0.0-3.0) Basophils (%) (Auto) % (0.0-2.0) % (0.0-2.0) Differential Total Cells Counted 100 100 Neutrophils % (Manual) 69 % (45-75) 70 % (45-75) Lymphocytes % (Manual) 17 % (20-45) L 13 % (20-45) L Monocytes % (Manual) 13 % (1-10) H 15 % (1-10) H Eosinophils % (Manual) 0 % (0-3) 2 % (0-3) Basophils % (Manual) 1 % (0-2) 0 % (0-2) Band Neutrophils 0 % (0-8) 0 % (0-8) Platelet Estimate Increased H Adequate Platelet Morphology Normal Normal Stomatocytes 2+ Sodium Level 135 MMOL/L (136-145) L 134 MMOL/L (136-145) L Potassium Level 3.8 MMOL/L (3.5-5.1) 3.9 MMOL/L (3.5-5.1) Chloride Level 100 MMOL/L (98-107) 103 MMOL/L (98-107) Carbon Dioxide Level 30 MMOL/L (21-32) 25 MMOL/L (21-32) Anion Gap 5 mmol/L (5-15) 6 mmol/L (5-15) Blood Urea Nitrogen 8 mg/dL (7-18) 7 mg/dL (7-18) Creatinine 1.0 MG/DL (0.55-1.30) 0.9 MG/DL (0.55-1.30) Estimat Glomerular Filtration Rate > 60 mL/min (>60) > 60 mL/min (>60) Glucose Level 105 MG/DL (74-106) 152 MG/DL (74-106) H Calcium Level 9.2 MG/DL (8.5-10.1) 8.8 MG/DL (8.5-10.1) Total Bilirubin 0.3 MG/DL (0.2-1.0) 0.3 MG/DL (0.2-1.0) Aspartate Amino Transf (AST/SGOT) 18 U/L (15-37) 14 U/L (15-37) L Alanine Aminotransferase (ALT/SGPT) 22 U/L (12-78) 15 U/L (12-78) Alkaline Phosphatase 93 U/L (46-116) 83 U/L (46-116) Total Creatine Kinase 44 U/L (26-308) Total Protein 10.2 G/DL (6.4-8.2) H 8.9 G/DL (6.4-8.2) H Albumin 2.8 G/DL (3.4-5.0) L 2.4 G/DL (3.4-5.0) L Globulin 7.4 g/dL 6.5 g/dL Albumin/Globulin Ratio 0.4 (1.0-2.7) L 0.4 (1.0-2.7) L Lipase 56 U/L (73-393) L Lactic Acid Level 1.70 mmol/L (0.4-2.0) Lymphocytes Pending Percent CD3 Cells Pending Absolute CD3 Count Pending Percent CD4 Cells Pending Absolute CD4 Count Pending T-Lymphocyte CD4/CD8 Ratio Pending Percent CD8 Cells Pending Absolute CD8 Count Pending HIV-1 RNA (PCR) log10 Value Pending HIV-1 RNA Ultraquantitative (PCR) Pending Test 08/31/19 17:35 Prothrombin Time 11.7 SEC (9.30-11.50) H Prothromb Time International Ratio 1.1 (0.9-1.1) Activated Partial Thromboplast Time 28 SEC (23-33) Total Protein (PEP) Pending Albumin (PEP) Pending Globulin (PEP) Pending Albumin/Globulin Ratio Pending [id number] Pending Uaseq-[id number] Pending Beta Globulins Pending Beta Gamma Globulin Pending PEP Abnormal Protein Bands Pending Protein Electrophoresis Interpret Pending Microbiology Date/Time Source Procedure Growth Status 08/31/19 17:30 Nasal Not Otherwise Specified - Final Complete 08/31/19 17:30 Nasal Not Otherwise Specified - Final Complete Height (Feet): 5 Height (Inches): 7.00 Weight (Pounds): 147 Medications Current Medications Medications (Trade) Dose Ordered Sig/Jamil Route PRN Reason Start Time Stop Time Status Last Admin Dose Admin Acetaminophen (Tylenol) 650 mg Q4H PRN ORAL Mild Pain/Temp > 100.5 08/31/19 01:15 09/30/19 01:14 Acetaminophen/ Hydrocodone Bitart ([place] 10/325) 1 tab Q4H PRN ORAL Severe Pain (Pain Scale 7-10) 08/31/19 01:15 09/07/19 01:14 08/31/19 18:15 Acetaminophen/ Hydrocodone Bitart ([place] 5/325) 1 tab Q4H PRN ORAL Moderate Pain (Pain Scale 4-6) 08/31/19 01:15 09/07/19 01:14 Docusate Sodium (Colace) 100 mg TWICE A DAY ORAL 08/31/19 09:00 09/30/19 08:59 08/31/19 18:16 Gadobutrol (Gadavist) 7.5 mmol NOW PRN IV Radiology Procedure 08/31/19 14:15 09/04/19 14:13 Gadobutrol (Gadavist) 7.5 mmol NOW PRN IV Radiology Procedure 08/31/19 14:15 09/04/19 14:13 Heparin Sodium (Porcine) (Heparin 5000 units/ml) 5,000 units EVERY 12 HOURS SUBQ 08/31/19 09:00 09/30/19 08:59 Ketorolac Tromethamine (Toradol 30mg) 30 mg Q6H IV 08/31/19 19:30 09/01/19 01:31 Non-Formulary Medication (Non-Formulary Med) 1 ea DAILY ORAL 08/31/19 09:00 09/30/19 08:59 UNV Ondansetron HCl (Zofran) 4 mg Q6H PRN IVP Nausea & Vomiting 08/31/19 01:15 09/30/19 01:14 08/31/19 10:58 Oxycodone/ Acetaminophen (Percocet 10/325) 1 tab Q6H PRN ORAL moderate to severe pain 08/31/19 13:00 09/07/19 12:59 Oxycodone/ Acetaminophen (Percocet 5-325) 1 tab Q6H PRN ORAL mild pain 08/31/19 13:00 09/07/19 12:59 08/31/19 14:30 Sodium Chloride 1,000 ml @ 100 mls/hr Q10H IV 08/31/19 13:00 09/30/19 12:59 08/31/19 16:45 Assessment/Plan Problem List: (1) Generalized weakness ICD Codes: R53.1 - Weakness SNOMED: 61147055 (2) Weight loss ICD Codes: R63.4 - Abnormal weight loss SNOMED: 48926659, 948327702 (3) Leukocytosis ICD Codes: D72.829 - Elevated white blood cell count, unspecified SNOMED: 345990185, 998846612 Qualifiers: Qualified Codes: D72.829 - Elevated white blood cell count, unspecified (4) HIV (human immunodeficiency virus infection) ICD Codes: B20 - Human immunodeficiency virus [HIV] disease SNOMED: 96848578 Qualifiers: Qualified Codes: B20 - Human immunodeficiency virus [HIV] disease (5) Allergic reaction ICD Codes: T78.40XA - Allergy, unspecified, initial encounter SNOMED: 681582203 (6) Acute low back pain ICD Codes: M54.5 - Low back pain SNOMED: 754179679 Status: unchanged Assessment/Plan: This is a 40 year old male with PMhx of HIV, spinal fusion, and Waldenstroms presenting with 3 weeks of malaise, myalgias, subjective fevers and found to have leukocytosis and elevated protein. #Malaise, myalgias, subjective fevers, tender lymphadenopathy #waldenstrom's #HIV, on Genvoya DDx: Infectious (suspect viral over bacterial) vs. noninfectious such as malignancy (multiple myeloma) - blood cultures - Infectious disease consult: Dr. Otto - Consider Heme/Onc consult if infection ruled out - MRI L/T spine to rule out abscess - LP to eval for meningitis - 2d Echo to evaluate for endocarditis (though less likely) - influenza nasal swab - SPEP to eval for multiple myeloma - IV fluids - IV toradol x 2. Holding further doses due to - Pain control with Percocet 5 for mild to moderate Q6hr PRN and percocet 10 for severe Q6hr PRN pain - Continue Genvoya - Check HIV RNA and CD4 count - Holding off on antibiotics for now as does not appear to have bacterial etiology - may be transferred to [place] due to insurance #acute on chronic low back pain - MRI as above - pain control as above 73 minutes was spent on this encounter. D/w RN, patient, and infectious disease. >50% spent on care coordination and counseling. Time of note may not reflect time patient was seen. Bobby Aguayo D.O. Aug 31, 2019 19:25
--- NOTE | 2019-08-31 19:38 | NUR ---
HAND-OFF: Report given to Pamela CRUZ.
[2019-08-31] MEDS: Ketorolac 30mg Inj IV SCH (19:54)
[2019-08-31 20:00] VITALS: BP 102/53
--- NOTE | 2019-08-31 20:00 | NUR ---
NURSE NOTES: Patient awake in bed, partner at the bedside, IVF maintenance running at 100ml/hr. Able to verbalize needs. Will administer pain medications per MD order. MRI and spinal tap scheduled for tomorrow. Will obtain consent.
--- NOTE | 2019-08-31 23:25 | NUR ---
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
--- NOTE | 2019-08-31 23:30 | NUR ---
NURSE NOTES: Patient allowed to shower earlier in the night, IV got pulled out. Reinserted 22 gauge on left upper arm. IVF maintenance running at 100ml/hr via pump.
[2019-09-01] VITALS (7 sets, daily range): BP systolic 118–138; BP diastolic 55–75
[2019-09-01] MEDS: Ketorolac 30mg Inj IV SCH (01:33)
[2019-09-01] MEDS: HYDROcodone/Acetamin 10/325 tab ORAL PRN ×3 (05:24→21:56)
[2019-09-01 06:22] LABS: BASOPHILS % (AUTO) 1.2 % (0.0-2.0); HEMATOCRIT 28.6 % (42.0-52.0); HEMOGLOBIN 9.6 G/DL (14.2-18.0); LYMPHOCYTES % (AUTO) 17.6 % (20.0-45.0); MEAN CORPUSCULAR VOLUME 95 FL (80-99); MONOCYTES % (AUTO) 17.3 % (1.0-10.0); PLATELET COUNT 476 K/UL (150-450); RED BLOOD COUNT 3.01 M/UL (4.70-6.10); RED CELL DISTRIBUTION WIDTH 14.4 % (11.6-14.8); WHITE BLOOD COUNT 17.9 K/UL (4.8-10.8)
[2019-09-01 06:30] LABS: ALANINE AMINOTRANSFERASE 15 U/L (12-78); ALBUMIN 2.2 G/DL (3.4-5.0); ALBUMIN/GLOBULIN RATIO 0.3 (1.0-2.7); ALKALINE PHOSPHATASE 82 U/L (46-116); ANION GAP 8 mmol/L (5-15); ASPARTATE AMINO TRANSFERASE 13 U/L (15-37); BILIRUBIN,TOTAL 0.2 MG/DL (0.2-1.0); BLOOD UREA NITROGEN 7 mg/dL (7-18); CALCIUM 8.7 MG/DL (8.5-10.1); CARBON DIOXIDE 25 MMOL/L (21-32); CHLORIDE 105 MMOL/L (98-107); POTASSIUM 4.3 MMOL/L (3.5-5.1); SODIUM 138 MMOL/L (136-145)
--- NOTE | 2019-09-01 07:36 | NUR ---
HAND-OFF: Report given to ANTHONY Hernandez.
--- NOTE | 2019-09-01 07:52 | NUR ---
NURSE NOTES: Patient alert x4; on room air, no sing of distress and shortness of breath; no sing of chest pain; IV LFA 22G NS 100cc running; patient scheduled for spinla Tap Diagnostic and MRI L-spine w contrast and MRI T-Spine w contrast consent on file for both; I communicated patient that pharmacy is waiting for "Genvaiya" HIV medication from home so that they can dispense it for him, patient said his partner gonna bring it; side rail up x2, breaks engaged, bed at lowest position; call light within reach; will keep monitoring.
[2019-09-01] MEDS: Docusate 100mg cap ORAL SCH ×2 (08:29→17:26)
[2019-09-01] MEDS: Heparin 5000 units/ml inj SUBQ SCH ×2 (08:30→21:00)
--- NOTE | 2019-09-01 09:13 | NUR ---
CASE MANAGEMENT: REVIEW 09/01/19 SI: LEUKOCYTOSIS 97.7 70 18 120/63 96% RA WBC 17.9; RBC 3.01; H/H 9.6/28.6; PLT 476 IS: IVF NS @100ML/HR PERCOCET PO Q6/PRN HEPARIN SQ Q12HR : 4E MED/SURG DCP: TRANSFER TO [facility]; [facility] PLAN: MRI TODAY BL CX ABX Addendum: 09/01/19 at 0931 by REMI BOYLE LVN CASE MANAGEMENT: REVIEW 09/01/19 SI: LEUKOCYTOSIS 97.7 70 18 120/63 96% RA WBC 17.9; RBC 3.01; H/H 9.6/28.6; PLT 476 IS: IVF NS @100ML/HR PERCOCET PO Q6/PRN HEPARIN SQ Q12HR : 4E MED/SURG DCP: TRANSFER TO [facility]; [facility] PLAN: SPINAL TAP MRI TODAY BL CX ABX
--- NOTE | 2019-09-01 09:30 | NUR ---
NURSE NOTES: Patient left the floor for MRI;
--- NOTE | 2019-09-01 09:39 | NUR ---
NURSE NOTES: Patient reports generalized itching. Dr. Aguayo called to notify. New orders received.
--- NOTE | 2019-09-01 11:26 | NUR ---
*-* INSURANCE *-* ALL CLINICALS AND REVIEWS HAVE BEEN FAXED TO: IPA: [id number] P: [phone] F: [phone] (FAX CLINICALS)
--- NOTE | 2019-09-01 12:41 | Diagnostic Imaging Report ---
Indication: Reason For Exam: PAIN Technique: Sagittal T 1 fast spin-echo, sagittal T2 FRFSE, sagittal STIR, axial T2 FRFSE, axial T1, axial T2 disc., Pre and postcontrast axial and sagittal T1 fat-saturated images Comparison: none Findings: There is anterior fusion hardware at L4-5 and L5-S1. There are also disc spacers at these levels. There is no unusual disc signal. The discs are likely but not definitively ankylosed. No abnormal disc enhancement is evident. The hardware appears intact and no abnormal signal is seen surrounding the hardware. The bony alignment is normal. The vertebral body heights are preserved. The vertebral marrow signal is normal. There is degenerative disc narrowing at T12-L1, with evidence of desiccation of the disc. There is also desiccation of the L2-3 disc. At L2-3, the disc space is preserved. There is circumferential annular bulge. This, in combination with facet and ligamentum flavum hypertrophy results in borderline narrowing of the spinal canal. The left neural foramen may be slightly compromised by the bulging disc. The right neural foramen is patent. L5-S1, facet hypertrophy results in borderline narrowing of the bilateral neural foramina. At the remaining disc levels, no significant disc bulge or protrusion, spinal stenosis, or neural foraminal stenosis. No unusual contrast enhancement is demonstrated. In particular, no definite unusual meningeal enhancement is evident. There is no evidence of epidural abscess. Incidentally noted are cysts in the right kidney. Impression: Post surgical changes, as described Mild degenerative changes as detailed on a level by level basis above No evidence of discitis, meningitis, osteomyelitis, or epidural abscess demonstrated
--- NOTE | 2019-09-01 13:14 | Diagnostic Imaging Report ---
Indication: Reason For Exam: PAIN Technique: Sagittal T 1 fast spin echo, sagittal T2 FRFSE, sagittal STIR, axial T2 FRFSE, axial T1, pre and postcontrast axial and sagittal T1 fat-saturated images obtained of the thoracic spine Comparison: none Findings: Bony alignment is normal. Vertebral body heights are preserved. The disc spaces are preserved. In the T9 vertebral body, there is a focal area of slightly increased T2 signal, more notably increased T2 and STIR signal. This demonstrates enhancement on the postcontrast images, is not visible on the precontrast fat saturated images. Intrinsic cord signal is normal. No significant disc bulge or protrusion, spinal stenosis, or neural foraminal stenosis. No unusual contrast enhancement is visualized. No abnormal meningeal enhancement is visualized. No unusual paraspinous enhancement is visualized. Impression: No definite acute abnormality. No definite evidence of meningitis or infectious spondylitis or epidural abscess. Focal 1 cm area of signal abnormality in the T9 vertebral body, as described. Findings most likely represent an atypical hemangioma, but given that the signal characteristics are not totally typical for such, the possibility of neoplasm or other pathology should also be considered
--- NOTE | 2019-09-01 13:55 | General Progress Note ---
Assessment/Plan Problem List: (1) Generalized weakness ICD Codes: R53.1 - Weakness SNOMED: 70717336 (2) Weight loss ICD Codes: R63.4 - Abnormal weight loss SNOMED: 63484957, 037593539 (3) Leukocytosis ICD Codes: D72.829 - Elevated white blood cell count, unspecified SNOMED: 388222919, 624812333 Qualifiers: Qualified Codes: D72.829 - Elevated white blood cell count, unspecified (4) HIV (human immunodeficiency virus infection) ICD Codes: B20 - Human immunodeficiency virus [HIV] disease SNOMED: 99872483 Qualifiers: Qualified Codes: B20 - Human immunodeficiency virus [HIV] disease (5) Allergic reaction ICD Codes: T78.40XA - Allergy, unspecified, initial encounter SNOMED: 761195770 (6) Acute low back pain ICD Codes: M54.5 - Low back pain SNOMED: 071239612 Status: unchanged Assessment/Plan: This is a 40 year old male with PMhx of HIV, spinal fusion, and Waldenstroms presenting with 3 weeks of malaise, myalgias, subjective fevers and found to have leukocytosis and elevated protein. #Malaise, myalgias, subjective fevers, tender lymphadenopathy - IMPROVING #waldenstrom's #HIV, on Genvoya DDx: Infectious (suspect viral over bacterial) vs. noninfectious such as malignancy (multiple myeloma) - blood cultures: negative to date - Infectious disease consult: Dr. Otto - Consider Heme/Onc consult if infection ruled out - MRI L/T spine to rule out abscess - LP to eval for meningitis - to be done today 09/01/19 - 2d Echo to evaluate for endocarditis (though less likely)- negative - influenza nasal swab - negative - SPEP to eval for multiple myeloma-pending - Continue IV fluids - IV toradol x 2. Holding further doses due to LP today - Pain control with Percocet 5 for mild to moderate Q6hr PRN and percocet 10 for severe Q6hr PRN pain - Continue Genvoya - Check HIV RNA and CD4 count - pending - Holding off on antibiotics for now as does not appear to have bacterial etiology - may be transferred to [place] due to insurance. Hemodynamicallys table #acute on chronic low back pain - MRI as above - pain control as above D/w RN, patient, and infectious disease. 38 minutes was spent on this encounter. >50% spent on care coordination and counseling. Time of note may not reflect time patient was seen. Subjective Date patient seen: Sep 01, 2019 Constitutional: Reports: malaise, weakness; Denies: chills, diaphoresis, fever , other HEENT: Denies: eye pain, blurred vision, tearing, double vision, ear pain, ear discharge, nose pain, nose congestion, throat pain, throat swelling, mouth swelling, other Cardiovascular: Denies: chest pain, edema, irregular heart rate, lightheadedness, palpitations, syncope, other Respiratory: Denies: cough, orthopnea, shortness of breath, SOB with excertion , SOB at rest, sputum, stridor, wheezing, other Gastrointestinal/Abdominal: Reports: no symptoms; Denies: abdomen distended, abdominal pain, black stools, tarry stools, blood in stool, constipated, diarrhea, difficulty swallowing, nausea, poor appetite, poor fluid intake, rectal bleeding, vomiting, other Genitourinary: Denies: burning, discharge, frequency, flank pain, hematuria, incontinence, pain, urgency, other Neurologic/Psychiatric: Denies: anxiety, depressed, emotional problems, headache, numbness, paresthesia, pre-existing deficit, seizure, tingling, tremors, weakness, other Endocrine: Denies: excessive sweating, flushing, intolerance to cold, intolerance to heat, increased hunger, increased thirst, increased urine, unexplained weight gain, unexplained weight loss, other Hematologic/Lymphatic: Denies: anemia, easy bleeding, easy bruising, other Allergies: Coded Allergies: NO KNOWN ALLERGIES (Unverified Allergy, Unknown, 10/08/15) Subjective No acute events overnight per nursing. His patient feels much better. He feels much stronger his generalized weakness and myalgias have greatly improved. He continues to experience low back pain that he endorses that this is his baseline back pain. He does still endorse a mild frontal headache. He denies any neck stiffness neck pain fever or chills. Patient endorses that over the past month he has been under extreme amount of stress due to financial difficulties. The patient is pending completion of his MRI and a lumbar puncture today. Objective Last 24 Hour Vital Signs Date Time Temp Pulse Resp B/P (MAP) Pulse Ox O2 Delivery O2 Flow Rate FiO2 09/01/19 13:31 98.6 09/01/19 12:00 98.6 89 18 126/65 (85) 97 09/01/19 09:00 Room Air 09/01/19 08:59 97.7 09/01/19 08:26 97.7 70 18 120/63 (82) 96 09/01/19 04:00 97.7 70 127/55 (79) 09/01/19 02:03 98.8 09/01/19 00:00 97.9 62 118/55 (76) 08/31/19 21:16 Room Air 08/31/19 20:00 98.4 79 102/53 (69) 08/31/19 16:30 98.8 103/52 (69) 08/31/19 13:59 97.7 08/31/19 13:59 97.7 Intake and Output 08/31/19 09/01/19 19:00 07:00 Intake Total 960 ml 400 ml Balance 960 ml 400 ml Intake Oral 360 ml IV Total 600 ml 400 ml # Voids 3 Laboratory Tests 08/31/19 17:35: Prothrombin Time 11.7H, Prothromb Time International Ratio 1.1, Activated Partial Thromboplast Time 28, Total Protein (PEP) [Pending], Albumin (PEP) [ Pending], Globulin (PEP) [Pending], Albumin/Globulin Ratio [Pending], Alpha-1- Globulins [Pending], Fncwm-9-Sfrskdrlc [Pending], Beta Globulins [Pending], Beta Gamma Globulin [Pending], PEP Abnormal Protein Bands [Pending], Protein Electrophoresis Interpret [Pending] 09/01/19 05:10: Albumin/Globulin Ratio 0.3L, White Blood Count 17.9H, Red Blood Count 3.01L, Hemoglobin 9.6L, Hematocrit 28.6L, Mean Corpuscular Volume 95, Mean Corpuscular Hemoglobin 31.9H, Mean Corpuscular Hemoglobin Concent 33.6, Red Cell Distribution Width 14.4, Platelet Count 476H, Mean Platelet Volume 4.8L, Neutrophils (%) (Auto) 63.0, Lymphocytes (%) (Auto) 17.6L, Monocytes (%) (Auto) 17.3H, Eosinophils (%) (Auto) 1.0, Basophils (%) (Auto) 1.2, CSF Herpes Simplex II DNA (PCR) [Pending], Sodium Level 138, Potassium Level 4.3, Chloride Level 105, Carbon Dioxide Level 25, Anion Gap 8, Blood Urea Nitrogen 7, Creatinine 1.0 , Estimat Glomerular Filtration Rate > 60, Glucose Level 88, Calcium Level 8.7, Total Bilirubin 0.2, Aspartate Amino Transf (AST/SGOT) 13L, Alanine Aminotransferase (ALT/SGPT) 15, Alkaline Phosphatase 82, Total Protein 8.8H, Albumin 2.2L, Globulin 6.6, West Nile Virus IgM Antibody [Pending], Herpes Simplex Virus I DNA (PCR) [Pending] Echocardiogram report was reviewed and was normal without any vegetations. 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 Sep 01, 2019 13:55
--- NOTE | 2019-09-01 15:20 | Pre-Procedure Note/Attestation ---
Pre-Procedure Note/Attestation Complete Prior to Procedure Planned Procedure: not applicable Procedure Narrative: Lumbar puncture Indications for Procedure Pre-Operative Diagnosis: meningitis Attestation I attest that I discussed the nature of the procedure; its benefits; risks and complications; and alternatives (and the risks and benefits of such alternatives ), prior to the procedure, with the patient (or the patient's legal service liaison representative). I attest that, if there was a reasonable possibility of needing a blood transfusion, the patient (or the patient's legal service liaison representative) was given the [facility] standardized written summary, pursuant to the [place] Blood Safety Act ([place] Health and Safety Code # 1645, as amended). I attest that I re-evaluated the patient just prior to the surgery and that there has been no change in the patient's H&P, except as documented below: Ishan Harris MD Sep 01, 2019 15:20
--- NOTE | 2019-09-01 15:22 | Brief Operative Note ---
Immediate Post Operative Note Operative Note Pre-op Diagnosis: suspected meningitis Post-op Diagnosis: same as pre-op Findings: consistent w/pre-op dx studies - opening pressure 20 cm closing pressure 15 cm Surgeon: Tete Rodas Anesthesia: local Specimen: yes - 9 ml clear CSF Complications: none Condition: stable Fluids: none Implant(s) used?: No Ishan Rodas MD Sep 01, 2019 15:22
--- NOTE | 2019-09-01 15:35 | NUR ---
LUMBAR PUNCTURE COMPLETED AT [address] KIMBERLY AHN. FA
--- NOTE | 2019-09-01 15:39 | Diagnostic Imaging Report ---
Indication: Headache, stiff neck, suspected meningitis Technique: Informed consent obtained prior to commencement of the procedure. Procedure timeout performed. Sterile prepping and draping. Local anesthesia with 1% lidocaine. Using a left of midline sublaminar approach, the thecal sac was accessed at the L3-4 level using a 22-gauge spinal needle. Patient was turned into the left lateral decubitus position. Orthogonal saved spot fluoroscopic images confirm adequate needle position. Spontaneous return of CSF was observed. Opening pressure measured, found to be 20 cm of H2O. Total 9 mL of clear CSF divided into 4 bile selected. Specimen sent to lab. Using pressure pain, found to be 16 cm of H2O. Needle removed, and a bandage was placed over the puncture site. The patient tolerated the procedure well, without immediate complication. Total fluoroscopy time 53.4 seconds. Total dose area product [id number] mGym2 Number of images: 2 Comparison: none Findings: As above Impression: Successful fluoroscopy-guided lumbar puncture, as described Opening pressure 20 cm H2O, closing pressure 16 cm H2O
--- NOTE | 2019-09-01 17:03 | Infectious Diseases Prog Note ---
Assessment/Plan Assessment/Plan Full consult dictated: A) 1) VILLEGAS, hx fever, ? veneer matcher infection 2) leukocytosis, ? sepsis 3) hiv hx P) 1) MRI, LP done 2) f/u on cultures, serology, labs, f/u on LP results 3) antibiotics as indicated 4) d/w Dr. Aguayo Subjective Constitutional: Denies: fever HEENT: Reports: other - frontasl headache less ; Denies: congestion Respiratory: Denies: shortness of breath Cardiovascular: Denies: chest pain Gastrointestinal/Abdominal: Denies: nausea, vomiting, diarrhea Genitourinary: Denies: dysuria Neurologic: Reports: headache - less Allergies: Coded Allergies: NO KNOWN ALLERGIES (Unverified Allergy, Unknown, 10/08/15) Objective Vital Signs Last 24 Hour Vital Signs Date Time Temp Pulse Resp B/P (MAP) Pulse Ox O2 Delivery O2 Flow Rate FiO2 09/01/19 16:00 96.5 71 18 123/72 (89) 99 09/01/19 13:31 98.6 09/01/19 12:00 98.6 89 18 126/65 (85) 97 09/01/19 09:00 Room Air 09/01/19 08:59 97.7 09/01/19 08:26 97.7 70 18 120/63 (82) 96 09/01/19 04:00 97.7 70 127/55 (79) 09/01/19 02:03 98.8 09/01/19 00:00 97.9 62 118/55 (76) 08/31/19 21:16 Room Air 08/31/19 20:00 98.4 79 102/53 (69) Height (Feet): 5 Height (Inches): 7.00 Weight (Pounds): 147 General Appearance: no acute distress HEENT: normocephalic, atraumatic, anicteric Respiratory/Chest: lungs clear, normal breath sounds, no respiratory distress Cardiovascular: normal rate, regular rhythm, no gallop/murmur Abdomen: normal bowel sounds, soft, non tender, no organomegaly Microbiology Date/Time Source Procedure Growth Status 08/31/19 00:15 Blood Blood Culture - Preliminary NO GROWTH AFTER 24 HOURS Resulted 08/31/19 00:00 Blood Blood Culture - Preliminary NO GROWTH AFTER 24 HOURS Resulted 08/31/19 17:30 Nasal Not Otherwise Specified - Final Complete 08/31/19 17:30 Nasal Not Otherwise Specified - Final Complete Laboratory Tests Test 08/31/19 17:35 09/01/19 05:10 09/01/19 15:07 09/01/19 16:10 Prothrombin Time 11.7 SEC (9.30-11.50) H Prothromb Time International Ratio 1.1 (0.9-1.1) Activated Partial Thromboplast Time 28 SEC (23-33) Total Protein (PEP) Pending Albumin (PEP) Pending Globulin (PEP) Pending Albumin/Globulin Ratio Pending 0.3 (1.0-2.7) L Nysht-1-Yeolsezqm Pending Fvmgs-7-Txywhcpnh Pending Beta Globulins Pending Beta Gamma Globulin Pending PEP Abnormal Protein Bands Pending Protein Electrophoresis Interpret Pending White Blood Count 17.9 K/UL (4.8-10.8) H Red Blood Count 3.01 M/UL (4.70-6.10) L Hemoglobin 9.6 G/DL (14.2-18.0) L Hematocrit 28.6 % (42.0-52.0) L Mean Corpuscular Volume 95 FL (80-99) Mean Corpuscular Hemoglobin 31.9 PG (27.0-31.0) H Mean Corpuscular Hemoglobin Concent 33.6 G/DL (32.0-36.0) Red Cell Distribution Width 14.4 % (11.6-14.8) Platelet Count 476 K/UL (150-450) H Mean Platelet Volume 4.8 FL (6.5-10.1) L Neutrophils (%) (Auto) 63.0 % (45.0-75.0) Lymphocytes (%) (Auto) 17.6 % (20.0-45.0) L Monocytes (%) (Auto) 17.3 % (1.0-10.0) H Eosinophils (%) (Auto) 1.0 % (0.0-3.0) Basophils (%) (Auto) 1.2 % (0.0-2.0) CSF Herpes Simplex II DNA (PCR) Pending Pending Sodium Level 138 MMOL/L (136-145) Potassium Level 4.3 MMOL/L (3.5-5.1) Chloride Level 105 MMOL/L (98-107) Carbon Dioxide Level 25 MMOL/L (21-32) Anion Gap 8 mmol/L (5-15) Blood Urea Nitrogen 7 mg/dL (7-18) Creatinine 1.0 MG/DL (0.55-1.30) Estimat Glomerular Filtration Rate > 60 mL/min (>60) Glucose Level 88 MG/DL (74-106) Calcium Level 8.7 MG/DL (8.5-10.1) Total Bilirubin 0.2 MG/DL (0.2-1.0) Aspartate Amino Transf (AST/SGOT) 13 U/L (15-37) L Alanine Aminotransferase (ALT/SGPT) 15 U/L (12-78) Alkaline Phosphatase 82 U/L (46-116) Total Protein 8.8 G/DL (6.4-8.2) H Albumin 2.2 G/DL (3.4-5.0) L Globulin 6.6 g/dL West Nile Virus IgM Antibody Pending Herpes Simplex Virus I DNA (PCR) Pending Pending CSF Appearance Pending Pending CSF Color Pending Pending CSF WBC Pending Pending CSF RBC Pending Pending CSF Neutrophils % Pending Pending CSF Lymphocytes % Pending Pending CSF Monocytes % Pending Pending CSF Crenated Cells Pending Pending CSF Glucose Pending Pending CSF Total Protein Pending Pending CSF VDRL Pending CSF Coccidioides Antibody Pending CSF West Nile Virus IgG Antibody Pending CSF West Nile Virus IgM Antibody Pending Cryptococcus Antigen Pending Coccidioides Antibody (Comp Fix) Pending Current Medications Medications (Trade) Dose Ordered Sig/Jamil Route PRN Reason Start Time Stop Time Status Last Admin Dose Admin Acetaminophen (Tylenol) 650 mg Q4H PRN ORAL Mild Pain/Temp > 100.5 08/31/19 01:15 09/30/19 01:14 Acetaminophen/ Hydrocodone Bitart ([place] 10/325) 1 tab Q4H PRN ORAL Severe Pain (Pain Scale 7-10) 08/31/19 01:15 09/07/19 01:14 09/01/19 13:01 Acetaminophen/ Hydrocodone Bitart ([place] 5/325) 1 tab Q4H PRN ORAL Moderate Pain (Pain Scale 4-6) 08/31/19 01:15 09/07/19 01:14 Docusate Sodium (Colace) 100 mg TWICE A DAY ORAL 08/31/19 09:00 09/30/19 08:59 09/01/19 08:29 Gadobutrol (Gadavist) 7.5 mmol NOW PRN IV Radiology Procedure 08/31/19 14:15 09/04/19 14:13 Gadobutrol (Gadavist) 7.5 mmol NOW PRN IV Radiology Procedure 08/31/19 14:15 09/04/19 14:13 Heparin Sodium (Porcine) (Heparin 5000 units/ml) 5,000 units EVERY 12 HOURS SUBQ 08/31/19 09:00 09/30/19 08:59 Non-Formulary Medication (Non-Formulary Med) 1 ea DAILY ORAL 08/31/19 09:00 09/30/19 08:59 UNV Ondansetron HCl (Zofran) 4 mg Q6H PRN IVP Nausea & Vomiting 08/31/19 01:15 09/30/19 01:14 08/31/19 10:58 Oxycodone/ Acetaminophen (Percocet 10/325) 1 tab Q6H PRN ORAL moderate to severe pain 08/31/19 13:00 09/07/19 12:59 09/01/19 08:29 Oxycodone/ Acetaminophen (Percocet 5-325) 1 tab Q6H PRN ORAL mild pain 08/31/19 13:00 09/07/19 12:59 08/31/19 14:30 Sodium Chloride 1,000 ml @ 100 mls/hr Q10H IV 08/31/19 13:00 09/30/19 12:59 09/01/19 07:33 Sourav Nelson MD Sep 01, 2019 17:03
--- NOTE | 2019-09-01 17:53 | NUR ---
COVER MAKER NOTES RECEIVED A CALL FROM JIM FROM [facility] WANTING TO TRANSFER PT INTO NETWORK. PT HAD A BED YESTERDAY AT [facility] HOWEVER PER CHARGE NURSE NOTES, [facility] COULD NOT ACCOMADATE THE ISOLATION. WILL MADE AWARE OF REASON PT DID NOT TRANSFER. PER [facility] HE WILL REQUEST BED AT [facility] AND CALL THE UNIT WHEN BED IS AVAILABLE. IF BED BECOMES AVAILABLE [facility] IS TO TRANSPORT THE PT WITH AN AUTHORIZATION [id number]. ADDITIONAL CLINICALS FAXED TO RENAY @ [phone].
--- NOTE | 2019-09-01 19:37 | NUR ---
HAND-OFF: Report given to ANTHONY Reynolds.
--- NOTE | 2019-09-01 19:41 | NUR ---
NURSE NOTES: Received report from ANTHONY Hernandez. Patient a/a/o x 4, breathing unlabored without distress, discomfort, or sob on room air. Patient denies pain at this time. Patient with family member at the bedside. Patient's responsible libertarian brought in the personal HIV medication Genvoya earlier but patient took today's dose by self without notifying the nurse. Patient said he took the pill at 1845. Explained to the patient that medication need to be handed to the pharmacy so that the hospital dispenses the medication. Patient confirmed understanding. Placed the medication on the secure bag and handed down to pharmacy personnel Harinder. Notified Harinder that patient already took today's dosage at 1845. IV site noted on the left forearm intact running fluid as ordered. Bed placed at the lowest with alarm, brake, and siderails up for safety. Call light placed within reach. Will continue to monitor and provide care as ordered.
--- NOTE | 2019-09-01 20:22 | NUR ---
NURSE NOTES: Received a call from Xander from [facility]. Informed patient has to be transferred to [facility] today due to insurance and to secure the bed. Xander from [facility] made appointment for ambulance. ETA 1 HR.
--- NOTE | 2019-09-01 20:30 | NUR ---
NURSE NOTES: Paged Dr. Gr to receive a discharge order.
--- NOTE | 2019-09-01 20:30 | NUR ---
NURSE NOTES: Informed patient about the discharge. Patient verbalized understanding.
--- NOTE | 2019-09-01 21:11 | NUR ---
NURSE NOTES: Report given to ANTHONY Walker from [facility]. Patient will be transferred to room 102-1.
--- NOTE | 2019-09-01 21:40 | NUR ---
NURSE NOTES: Received discharge order from Dr. Gr. Dr. Gr made aware of patient's condition. MD ordered to continue hospital medication except for Gadavist which was for radiology process. Hospital medication as followed: Acetaminophen 650 mg PO Q 4 hrs, Docusate 100 mg Cap BID, NS 1000mL in 100 mls/hr via IV Q10HR, Heparin 5000 units/ml subq Q 12hrs, [place] 5/325 q 4hrs PRN for moderate pain, [place] 10/325 q 4hrs PRN for severe pain, Zofran 4mg/2ml Q 6hrs PRN for N & V, Percocet 5/325 Q 6hrs PRN for mild pain, Percocet 10/325 q 6hrs PRN for moderate to severe pain, and Genvoya 1 tab q daily. Will carry out the order and provide care as ordered.
[2019-09-01] MEDS ORDERED: ACETAMINOPHEN325 M1 ORAL ×2 (22:04→22:05)
[2019-09-01] MEDS ORDERED: COLACE100 MG ORAL (22:06)
[2019-09-01] MEDS ORDERED: HEPARIN SO5000 UNIT2 SUBQ (22:07)
[2019-09-01] MEDS ORDERED: ZOFRAN 4 MG4 MG/2 ML IV (22:08)
[2019-09-01] MEDS ORDERED: HYDROCODON-ACE1 EA13 ORAL (22:08)
[2019-09-01] MEDS ORDERED: OXYCODONE-ACET1 EAC5 ORAL (22:09)
[2019-09-01] MEDS ORDERED: OXYCODONE-ACET1 EAC3 ORAL (22:09)
[2019-09-01] MEDS ORDERED: SODIUM CHLORID500 M2 IV (22:15)
[2019-09-01] MEDS ORDERED: SODIUM CHLORID250 M1 IV ×2 (22:20→22:21)
[2019-09-01] MEDS ORDERED: Lidocaine 1% Plain 30 ml INJ ONE (23:19)
--- NOTE | 2019-09-01 23:20 | NUR ---
NURSE NOTES: [facility] ambulance came to pick patient up. Patient aware of discharge and Patient's son stayed until patient left the unit at 2320. Removed patient IV and ID band. Patient medication retrieved from the pharmacy at 2144 and given back to patient before discharge. Patient a/a/o x 4 and verbalized understanding of all the process. Patient confirmed all belongings present and signed the belonging list. Discharge education provided. Patient's vital signs stable: BP132/68 Temp 98.1 RR 16 O2Sat on room air 100% HR 85. Discharge documentation and belongings handed to [facility] personnel. Patient left the unit at 2320 in stable condition. Next of kin was reached but no answer. Left message about patient's discharge. Patient's son is aware of the situation.
--- NOTE | 2019-09-01 23:45 | Consultation ---
DATE OF CONSULTATION: 09/01/2019 INFECTIOUS DISEASE CONSULTATION CONSULTING PHYSICIAN: Sourav Nelson M.D. ATTENDING PHYSICIAN: Brunilda Gr M.D. REFERRING PHYSICIAN: Bobby Aguayo D.O. REASON FOR CONSULTATION: Possible sepsis, elevated white count, possible meningitis/encephalitis, history of HIV, leukocytosis, history of fevers. CHIEF COMPLAINT: The patient's chief complaint coming in to the hospital is fevers, leukocytosis. HISTORY OF PRESENT ILLNESS: This is a very pleasant 64-year-old male, who has history of HIV. He said his viral load is undetectable and T-cell count is unclear. He is not sure, but it is over 200. The patient presents to [facility] with headache, mostly frontal headache, history of fevers, leukocytosis, concern for sepsis. Also, concern for possible meningitis/encephalitis. The patient had an MRI of the spine that was reviewed and noted. He has history of I believe spinal surgery. There is no mention of epidural abscess there. The patient is status post LP or lumbar puncture, results are pending. White count as high as 20,000, be precise it is 20.4. Today, it is 17.9. Cultures including blood cultures are negative to date. Chest x-ray and UA is negative. Currently, the patient is not on antibiotics. Case was discussed with Dr. Aguayo. MAR was noted. Orders were noted. Notes were reviewed. REVIEW OF SYSTEMS: The patient has generalized fatigue. No real focal weakness. His headache is better today than yesterday. He has UTI, history of fevers, currently is afebrile. No chills. CARDIAC: No chest pain. GASTROINTESTINAL: No nausea, vomiting, or diarrhea. GENITOURINARY: No dysuria or frequency. PULMONARY: No congestion or shortness of breath. SKIN: No rash. EXTREMITIES: No extremity pain. NEUROLOGIC: No seizures. He has a frontal headache that is improved today also. No neck stiffness per se. PAST MEDICAL HISTORY: The patient's past medical history includes history of HIV. I am not sure what his T-cell count. His viral load he said is undetectable. Serology here is pending. Other past medical history includes history of lumbar fusion surgery, history of monoclonal gammopathy. History of lymphadenopathy. No history of diabetes, hypertension. ALLERGIES: No known drug allergies. SOCIAL HISTORY: Negative for smoking, alcohol, or drug abuse. FAMILY HISTORY: Positive for hypertension and colon cancer. MEDICATIONS: In the outpatient setting for his HIV, he gets Genvoya. Upon reviewing the MAR, he is on gadobutrol, oxycodone as needed, docusate, acetaminophen, and Zofran as needed. Again, HIV medication is Genvoya in the outpatient setting. PHYSICAL EXAMINATION: VITAL SIGNS: Temperature 96.5, pulse rate 71, respiratory rate 18, blood pressure is 123/72, and saturation 99%. GENERAL: Alert, responsive, in no acute distress, nontoxic. HEAD AND NECK: Oral exam, no thrush. Eyes, no icterus. Neck is supple. No JVD. Normocephalic. Some frontal pain. No sinus tenderness. HEART: Regular. No gallop or murmur. ABDOMEN: Soft. Positive bowel sounds. Nontender. LUNGS: Clear. Bilateral rhonchi and rales. SKIN: No rash. MUSCULOSKELETAL: No effusion. Legs are without cellulitis. PERIPHERAL VASCULAR: No cyanosis. No gangrene. No septic arthritis. GENITOURINARY: No CVA tenderness. No Romo. LINE SITES: Without phlebitis. NEUROLOGICAL: Intact. Nonfocal. Alert and oriented x3. EXTREMITIES: No extremity pain. LABORATORY AND DIAGNOSTIC DATA: Laboratory data, LP results are pending. Creatinine is 1.0. Lipase 56. Sodium 135. White count as high as 20.4, now white count 17.9, hemoglobin 9.6, and creatinine 1.0. LFTs noted. Urinalysis with 0 white cells, leuk esterase negative. LP results are pending. Blood cultures are negative today. Lumbar spine and thoracic spine MRI, there is no mention of epidural abscess. ASSESSMENT AND PLAN: 1. The patient has history of fevers, elevated white count, rule out occult sepsis. The patient has headache, rule out meningitis/encephalitis. , rule out other central nervous system infection. Of note, UA is negative. Blood cultures negative. Chest x-ray negative. At this time, there is no indication for antibiotics. We will follow up on serology laboratories. Check LP results. Give antibiotics as indicated. Monitor leukocytosis. Again, no further fevers at this time. Rule out central nervous system infection as discussed. 2. HIV. Check CD4, viral load. Continue Genvoya. 3. History of spinal surgery. 4. No history of diabetes or hypertension. 5. Social history is negative. 6. Family history is positive for cancer and hypertension. 7. MAR was noted. 8. Case was discussed with RN. 9. No known allergies. 10. Case was discussed with Dr. Aguayo. 11. Case was discussed with the patient. Sourav Nelson M.D. DR: RAOUL JOB#: [id number] CC:
--- NOTE | 2019-09-02 08:18 | Discharge Summary ---
Discharge Summary Hospital Course Date of Admission Sep 01, 2019 at 09:35 Date of Discharge Sep 01, 2019 at 23:20 Admitting Diagnosis fevers/leukocytosis HPI Aramis Oliver is a 64 year old male who was admitted on Sep 01, 2019 at 09:35 for Fever/Leukocytosis Consultations Infectious Disease Procedures MRI T/L spine with without contrast Lumbar Puncture Hospital Course This is a 40 year old male with PMhx of HIV, spinal fusion, and Waldenstroms presenting with 3 weeks of malaise, myalgias, subjective fevers and found to have leukocytosis and elevated protein. This is a 40 year old male with a PMHx of HIV on HAART (Genvoya), h/o lumbar spinal fusion, monoclonal gammopathy presenting with generalized weakness, subjective fevers, weight loss, painful cervical lymphadenopathy, and acute on chronic low back pain x 3 weeks. 3 weeks ago the patient developed hives and was tresated with a short course of benadryl and prednisone and resolved. He denies any recent travel, drug use, sick contacts, TB exposure, exposure to any animals or pets. he denies any nausea, vomiting, diarrhea, numbness tingling, focal weakness. He endorses a 7lb weight loss during this time period due to decreased PO intake. He is monogamous with his partner but one month ago had unprotected oral intercourse with another man. ER course: Afebrile, normotensive, nontachycardic. WBC 20K, Hgb 9.5, CMP remarkable for Total protein 10.2 and albumin 2.8. UA and CXR negative. The patient was admitted for general malaise, myalgias, subjective fevers, tender lymphadenopathy, and an elevated white count. Chest x-ray and urinalysis was negative. The patient had no rashes ulcers or lesions. The patient's vital signs were stable. He did not meet any criteria for Sirs. Blood cultures were drawn and negative to date. Infectious disease was consulted. No antibiotics were started as there was no source of infection identified. Given that the patient has HIV and was complaining of a headache, a lumbar puncture was performed to rule out meningitis/encephalitis. CSF cell count and differential was negative. Other studies are pending (please see below). Given that the patient has a history of spinal hardware and was complaining of acute on chronic low back pain and MRI of thoracic and lumbar spine with and without contrast was performed to evaluate for epidural abscess/osteomyelitis/ discitis/etc. The MRI was negative for infection however as detailed below, there was a focal 1 cm area of signal abnormality in the T9 vertebral body. Findings were most likely motor vehicle field representative of an atypical hemangioma, but neoplasm or other pathology could be considered. A paranasal neoplastic panel was attempted to be added to the spinal fluid. And it is currently pending. A 2d echo was also performed and was negative for endocarditis. Normal ejection fraction and wall motion The patient was given IV fluids and pain was controlled with IV Toradol. Overnight the patient dramatically improved, his energy level improved. His back pain returned to baseline. The patient also endorses being under a lot of stress for the past few weeks. This may have been a contributing factor to his current condition. The patient was transferred to an outside hospital due to insurance. The patient had been seen earlier that day. The patient was hemodynamically stable on discharge Significant labs/Studies [id number] 770 Pending studies Cocci Crypto HIV RNA PCR SPEP Paraneoplastic panel, CSF LP results Glucose 71 Protein 43 Cell count: 0 WBC, RBC, clear colorless LP results pending [place] VDRL Cocci HSV Culture MRI L Spine Findings: There is anterior fusion hardware at L4-5 and L5-S1. There are also disc spacers at these levels. There is no unusual disc signal. The discs are likely but not definitively ankylosed. No abnormal disc enhancement is evident. The hardware appears intact and no abnormal signal is seen surrounding the hardware. The bony alignment is normal. The vertebral body heights are preserved. The vertebral marrow signal is normal. There is degenerative disc narrowing at T12-L1, with evidence of desiccation of the disc. There is also desiccation of the L2-3 disc. At L2-3, the disc space is preserved. There is circumferential annular bulge. This, in combination with facet and ligamentum flavum hypertrophy results in borderline narrowing of the spinal canal. The left neural foramen may be slightly compromised by the bulging disc. The right neural foramen is patent. L5-S1, facet hypertrophy results in borderline narrowing of the bilateral neural foramina. At the remaining disc levels, no significant disc bulge or protrusion, spinal stenosis, or neural foraminal stenosis. No unusual contrast enhancement is demonstrated. In particular, no definite unusual meningeal enhancement is evident. There is no evidence of epidural abscess. Incidentally noted are cysts in the right kidney. Impression: Post surgical changes, as described Mild degenerative changes as detailed on a level by level basis above No evidence of discitis, meningitis, osteomyelitis, or epidural abscess demonstrated MRI T spine Impression: No definite acute abnormality. No definite evidence of meningitis or infectious spondylitis or epidural abscess. Focal 1 cm area of signal abnormality in the T9 vertebral body, as described. Findings most likely represent an atypical hemangioma, but given that the signal characteristics are not totally typical for such, the possibility of neoplasm or other pathology should also be considered #Malaise, myalgias, subjective fevers, tender lymphadenopathy - IMPROVING #waldenstrom's #HIV, on Genvoya DDx: Infectious (suspect viral over bacterial) vs. noninfectious such as malignancy (multiple myeloma) - blood cultures: negative to date - Infectious disease consult: Dr. Otto - Consider Heme/Onc consult if infection ruled out - MRI L/T spine to rule out abscess - LP to eval for meningitis - to be done today 09/01/19 - 2d Echo to evaluate for endocarditis (though less likely)- negative - influenza nasal swab - negative - SPEP to eval for multiple myeloma-pending - Continue IV fluids - IV toradol x 2. Holding further doses due to LP today - Pain control with Percocet 5 for mild to moderate Q6hr PRN and percocet 10 for severe Q6hr PRN pain - Continue Genvoya - Check HIV RNA and CD4 count - pending - Holding off on antibiotics for now as does not appear to have bacterial etiology - may be transferred to outside hospital due to insurance. Hemodynamicallys table #acute on chronic low back pain - MRI as above - pain control as above D/w RN, patient, infectious disease, and the patient's PCP Dr. Nix. >30 minutes was spent on this encounter. >50% spent on care coordination and counseling. Time of note may not reflect time patient was seen. Discharge Condition Upon Discharge: improving Discharge Disposition Patient was discharged to outside Hospital Discharge Diagnoses: (1) Malaise and fatigue (2) Tenderness of lymph node (3) Hives (4) Generalized weakness (5) Weight loss (6) Acute low back pain Bobby Aguayo D.O. Sep 02, 2019 08:18
--- NOTE | 2019-09-03 21:07 | Cardiology Report ---
APPROVED REPORT EXAM: Two-dimensional and M-mode echocardiogram with Doppler and color Doppler. INDICATION Other M-Mode DIMENSIONS IVSd1.1 (0.7-1.1cm)Left Atrium (MM)3.1 (1.6-4.0cm) LVDd4.3 (3.5-5.6cm)Aortic Root2.6 (2.0-3.7cm) PWd1.1 (0.7-1.1cm)Aortic Cusp Exc.1.7 (1.5-2.0cm) LVDs2.1 (2.5-4.0cm) PWs1.5 cm Normal left ventricular chamber size, systolic function and wall motion. Left ventricular ejection fraction estimated to be 65-70 %. No evidence of pericardial effusion. Anterior Echo-free space, may be due to pericardial fat or effusion. All other cardiac chamber sizes are within normal limits. Focal aortic valve sclerosis with adequate cusp excursion. Thickened mitral valve leaflets with normal excursion. Mitral annulus and aortic root calcification. Normal pulmonic valve structure. Normal tricuspid valve structure. IVC at normal size with physiologic collapse. A color flow and spectral Doppler study was performed and revealed: Trace mitral regurgitation. Mitral inflow indicates normal left ventricular diastolic function. Trace tricuspid regurgitation. Tricuspid systolic velocities suggests peak right ventricular systolic pressure of 16mmHg.
--- NOTE | 2019-09-04 16:10 | NUR ---
*-* INSURANCE *-* DISCHARGE SUMMARY HAVE BEEN FAXED TO: IPA: [facility] P: [phone] F: [phone] (FAX CLINICALS)
== END 2019-09-01 23:20 | disposition short-term general hospital (02) | DRG 815 ==
LOC: EMR 20:37 → 4E 23:33 → OBSVTOIN 23:33 → EDBEDREQ 23:54 → OBSVTOIN 09-01 09:35 → INTOOBSV 09-01 09:35
PROC: 009U3ZX Drainage of Spinal Canal, Percutaneous Approach, Diagnostic (ICD-10-PCS; principal; 2019-09-01)
DX: D72.829 Elevated white blood cell count, unspecified (principal); B20 Human immunodeficiency virus [HIV] disease; R53.81 Other malaise; R50.9 Fever, unspecified; R59.1 Generalized enlarged lymph nodes; M54.5 Low back pain; R63.4 Abnormal weight loss; D47.2 Monoclonal gammopathy; Z98.1 Arthrodesis status; C88.0 Waldenstrom macroglobulinemia; R51 Headache; L50.9 Urticaria, unspecified
CPT/HCPCS: 36415; 71045; 72157; 72158; 80053; 81003; 82550; 82945; 83605; 83690; 84157; 84165; 85007; 85025; 85610; 85730; 86360; 86592; 86635; 86710; 86790; 87040; 87070; 87116; 87205; 87220; 87449; 87529; 87536; 89051; 93306; 96361; 96374; 99285; A9585; J2405

== ENCOUNTER 2020-07-22 19:53 | Emergency (ER) | payer BC, MEDICARE ==
[~2020-07-22] VITALS: Ht 170.2 cm; Wt 72.6 kg
[~2020-07-22 19:53] MED LIST changes: +ACETAMINOPHEN325 M1 ORAL; +COLACE100 MG ORAL; +HEPARIN SO5000 UNIT2 SUBQ; +HYDROCODON-ACE1 EA13 ORAL; +OXYCODONE-ACET1 EAC3 ORAL; +OXYCODONE-ACET1 EAC5 ORAL; +SODIUM CHLORID250 M1 IV; +SODIUM CHLORID500 M2 IV; +ZOFRAN 4 MG4 MG/2 ML IV
[2020-07-22 20:11] VITALS: BP 142/77
--- NOTE | 2020-07-22 20:14 | Emergency Room Report ---
History of Present Illness General Chief Complaint: Chest Pain Source: Patient, Medical Record Present Illness HPI Patient is a 65-year-old male presents after increased shortness of breath. Onset of symptoms yesterday. Had recently been started on antibiotics for sinus infection. Had prior history of HIV and had previous normal cell counts and viral load. Denies any prior cardiac history. Pain to the chest was intermittent. He takes medications for back pain chronically. Had intermittent pain primarily to the center of his chest. Had denied any vomiting or bloody stools. Denies any cough. Allergies: Coded Allergies: NO KNOWN ALLERGIES (Unverified Allergy, Unknown, 10/08/15) COVID-19 Screening Contact w/high risk pt: No Experienced COVID-19 symptoms?: No COVID-19 Testing performed [employer] ATTENDANT: No Patient History Past Medical History: see triage record Reviewed Nursing Documentation: PMH: Agreed; PSxH: Agreed Nursing Documentation-PMH Hx Cardiac Problems: No Hx Cancer: Yes - Hematologic cancer Hx Gastrointestinal Problems: No Hx Neurological Problems: No Review of Systems All Other Systems: negative except mentioned in HPI Physical Exam Vital Signs Date Time Temp Pulse Resp B/P (MAP) Pulse Ox O2 Delivery O2 Flow Rate FiO2 07/22/20 19:58 97.2 96 22 142/77 (98) 100 Room Air Sp02 EP Interpretation: reviewed, normal General Appearance: normal inspection, well appearing, no apparent distress, alert, GCS 15, non-toxic Head: atraumatic ENT: normal ENT inspection, hearing grossly normal, normal voice Neck: normal inspection, full range of motion, supple, no bony tend Respiratory: normal inspection, no respiratory distress, no retraction, no wheezing, decreased breath sounds - right side Cardiovascular #1: regular rate, rhythm, no edema Gastrointestinal: normal inspection, normal bowel sounds, non tender, soft, no guarding, no hernia Genitourinary: no CVA tenderness Musculoskeletal: normal inspection, back normal, normal range of motion Neurologic: alert, motor strength/tone normal, counseling center manager III-XII nml as tested, responsive, speech normal, normal inspection Psychiatric: normal inspection, judgement/insight normal, mood/affect normal Medical Decision Making Diagnostic Impression: Primary Impression: Chest pain Additional Impressions: Anemia HIV (human immunodeficiency virus infection) Leukocytosis ER Course Patient presented for shortness of breath. Differential diagnosis include was not limited to pneumonia, bronchitis, reactive airway disease, myocardial infarction among others. Because of complexity of patient's case laboratory tests and imaging studies were ordered.Patient laboratory testing showed markedly elevated white blood count. Chest x-ray 1 view read by radiology showed no evidence of acute infiltrate with elevation of the hemidiaphragm. Patient was discussed with [facility] physician for [facility] for [facility] who agreed to accept the patient for transfer.Patient was consented for blood. Labs Test 07/22/20 20:18 White Blood Count 23.8 K/UL (4.8-10.8) Red Blood Count 1.49 M/UL (4.70-6.10) Hemoglobin 6.0 G/DL (14.2-18.0) Hematocrit 15.9 % (42.0-52.0) Mean Corpuscular Volume 107 FL (80-99) Mean Corpuscular Hemoglobin 40.2 PG (27.0-31.0) Mean Corpuscular Hemoglobin Concent 37.7 G/DL (32.0-36.0) Red Cell Distribution Width 25.6 % (11.6-14.8) Platelet Count 633 K/UL (150-450) Mean Platelet Volume 4.9 FL (6.5-10.1) Neutrophils (%) (Auto) % (45.0-75.0) Lymphocytes (%) (Auto) % (20.0-45.0) Monocytes (%) (Auto) % (1.0-10.0) Eosinophils (%) (Auto) % (0.0-3.0) Basophils (%) (Auto) % (0.0-2.0) Differential Total Cells Counted 100 Neutrophils % (Manual) 54 % (45-75) Lymphocytes % (Manual) 33 % (20-45) Monocytes % (Manual) 10 % (1-10) Eosinophils % (Manual) 1 % (0-3) Basophils % (Manual) 0 % (0-2) Metamyelocytes % 1 % (0-0) Myelocytes % 1 % (0-0) Band Neutrophils 0 % (0-8) Nucleated Red Blood Cells 2 /100 WBC Platelet Estimate Increased Platelet Morphology Normal Hypochromasia 3+ Anisocytosis 2+ Macrocytosis 1+ Sodium Level 136 MMOL/L (136-145) Potassium Level 4.0 MMOL/L (3.5-5.1) Chloride Level 101 MMOL/L (98-107) Carbon Dioxide Level 27 MMOL/L (21-32) Anion Gap 8 mmol/L (5-15) Blood Urea Nitrogen 14 mg/dL (7-18) Creatinine 1.1 MG/DL (0.55-1.30) Estimat Glomerular Filtration Rate > 60 mL/min (>60) Glucose Level 112 MG/DL (74-106) Calcium Level 9.3 MG/DL (8.5-10.1) Total Bilirubin 0.7 MG/DL (0.2-1.0) Aspartate Amino Transf (AST/SGOT) 28 U/L (15-37) Alanine Aminotransferase (ALT/SGPT) 15 U/L (12-78) Alkaline Phosphatase 96 U/L (46-116) Troponin I 0.045 ng/mL (0.000-0.056) Pro-B-Type Natriuretic Peptide 149 pg/mL (0-125) Total Protein 10.0 G/DL (6.4-8.2) Albumin 3.3 G/DL (3.4-5.0) Globulin 6.7 g/dL Albumin/Globulin Ratio 0.5 (1.0-2.7) Lipase 116 U/L (73-393) EKG Diagnostic Results Rate: normal Rhythm: NSR ST Segments: no acute changes Rhythm Strip Diag. Results EP Interpretation: yes Rhythm: NSR - 92, no PVC's, no ectopy Last Vital Signs Date Time Temp Pulse Resp B/P (MAP) Pulse Ox O2 Delivery O2 Flow Rate FiO2 07/22/20 19:58 97.2 96 22 142/77 (98) 100 Room Air Status: improved Disposition: SHORT-TERM HOSP Condition: Stable Sunil Atwood MD Jul 22, 2020 20:14
[2020-07-22] MEDS ORDERED: Aspirin Baby 81mg ORAL ONE (20:30)
[2020-07-22 20:46] LABS: HEMATOCRIT 15.9 % (42.0-52.0); MEAN CORPUSCULAR VOLUME 107 FL (80-99); PLATELET COUNT 633 K/UL (150-450); RED BLOOD COUNT 1.49 M/UL (4.70-6.10); RED CELL DISTRIBUTION WIDTH 25.6 % (11.6-14.8)
[2020-07-22 20:48] LABS: WHITE BLOOD COUNT 23.8 K/UL (4.8-10.8)
[2020-07-22 20:53] LABS: ANION GAP 8 mmol/L (5-15); BLOOD UREA NITROGEN 14 mg/dL (7-18); CALCIUM 9.3 MG/DL (8.5-10.1); CARBON DIOXIDE 27 MMOL/L (21-32); CHLORIDE 101 MMOL/L (98-107); CREATININE 1.1 MG/DL (0.55-1.30); SODIUM 136 MMOL/L (136-145)
[2020-07-22 21:05] LABS: ALANINE AMINOTRANSFERASE 15 U/L (12-78); ALBUMIN 3.3 G/DL (3.4-5.0); ALBUMIN/GLOBULIN RATIO 0.5 (1.0-2.7); ALKALINE PHOSPHATASE 96 U/L (46-116); ASPARTATE AMINO TRANSFERASE 28 U/L (15-37); BILIRUBIN,TOTAL 0.7 MG/DL (0.2-1.0)
--- NOTE | 2020-07-22 21:08 | Diagnostic Imaging Report ---
EXAM: XR Chest, 1 View CLINICAL HISTORY: Chest pain. TECHNIQUE: Frontal view of the chest. COMPARISON: 08/30/2019. FINDINGS: Lungs: Minimal scarring versus atelectasis at the right lung base. No consolidative change. Pleural space: Unremarkable. No pneumothorax. Heart: Heart is top normal in size. Mediastinum: Unremarkable. Bones/joints: Old lower posterior right rib fractures. Upper abdomen: There is elevation of the right hemidiaphragm. Surgical clips right upper quadrant. IMPRESSION: 1. No change from the previous study. 2. Elevation of the right hemidiaphragm is again noted.
[2020-07-22] MEDS ORDERED: Morphine Sulfate 2mg/ml Inj(IV/IM USE ONLY) IVP ONE (21:45)
[2020-07-22] MEDS ORDERED: cefTRIAXone 1 GM in NS 55 ML IVPB ONE (21:45)
[2020-07-22 22:05] VITALS: BP 139/76
[2020-07-23 00:04] VITALS: BP 142/79
[2020-07-23 02:07] VITALS: BP 139/81
[2020-07-23 04:05] VITALS: BP 142/79
== END 2020-07-23 04:05 | disposition short-term general hospital (02) ==
LOC: EMR 21:00
DX: R07.9 Chest pain, unspecified (principal); D64.9 Anemia, unspecified; B20 Human immunodeficiency virus [HIV] disease; D72.829 Elevated white blood cell count, unspecified; Z85.9 Personal history of malignant neoplasm, unspecified
CPT/HCPCS: 36415; 71045; 80053; 83690; 83880; 84484; 85007; 85025; 86850; 86870; 86900; 86901; 93005; 96365; 96375; 99285; J0696; J2270; U0002; 86920